=== PATIENT | female | born 1965 | race Caucasian/White ===

== ENCOUNTER 2018-01-10 14:41 | Inpatient (IN) ==
[2018-01-10] MEDS ORDERED: Ipratropium/Albuterol Neb 3 ML IH ONE (16:48)
--- NOTE | 2018-01-10 17:01 | Internal Med History&Physical ---
Date of Encounter: 01/11/18 Time of Encounter: 17:00 Internal Medicine - H&P: HPI History of present illness: Ms. Mclaughlin is a 52 year old female presents by EMS with initial complaint of diarrhea associated with productive cough of green sputum and increased O2 requirement. He CXR revealed pneumonia and she was admitted for COPD exacerbation. When She arrived she was saturating 94 on 8 L of Q, she improved significantly on BIBAP Past Med Surg Social Fam HX - Past Medical History Medical history: COPD Psychiatric history: no psych history - Past Surgical History Surgical History: hysterectomy - Social History Smoking Status: Current every day smoker Packs per day: 1 Smokeless Tobacco Status: No Alcohol use: none Drug use: none Internal Medicine - H&P: Meds Albuterol Sulfate [Proair Hfa] 1 puff IH Q4-6H PRN 09/06/15 [History] Symbicort 160/4.5 1 puff IH BID 09/06/15 [History] Albuterol Sulfate [Ventolin Hfa] 18 gm IH Q6H PRN 01/10/18 [History] 3 Allergy/AdvReac Type Severity Reaction Status Date / Time aspirin AdvReac Vomiting Verified 09/06/15 19:28 All Systems PM: A 10-system review of systems was performed and is negative for pertinent findings except as documented above in the HPI. - Constitutional Vitals: Temp Pulse Resp BP Pulse Ox 98.5 F 107 20 109/73 95 01/10/18 16:30 01/10/18 16:30 01/10/18 16:30 01/10/18 16:30 01/10/18 16:30 - Assessment and plan (1) COPD (chronic obstructive pulmonary disease) Current Visit: No Status: Chronic Assessment and plan: ASSESSMENT: - SOB due to *COPD exacerbation caused by URTI, allergen exposure, medication nonocompliance *Bronchitis *Pneumonia - infiltrate on CXR PLAN: - Aerosols q 4 hr and PRN SOB - Solu-medrol 40 mg IV q 6 hr - O2 to keep SpO2 higher than 92% (SpO higher than 95% if CAD) - CBCD, BMP in AM - Sputum Gram stain, C+S - Robitussin 10 cc PO q 4 hr - Tylenol 650 mg PO q 4-6 hr PRN pain/fever - Heparin 5000 U SQ BID - Home meds - check the list and restart - Azithromycine 500 po daily Qualifiers: COPD type: COPD with acute exacerbation Qualified Code(s): J44.1 - Chronic obstructive pulmonary disease with (acute) exacerbation (2) DVT prophylaxis Current Visit: Yes Status: Acute - Time Spent With Patient Total time spent is greater than 50% in coordination of care (as documented) at patient's floor/unit and/or counseling patient:
[2018-01-10] MEDS ORDERED: Naloxone 0.4 MG/ML INJ IVP PRN (18:53)
[2018-01-10] MEDS ORDERED: Acetaminophen 325 MG TABLET PO PRN (18:53)
[2018-01-10] MEDS ORDERED: *HR* HYDROcodone/Acet 5/325 mg TABLET PO PRN (18:53)
[2018-01-10 19:49] LABS: Prothrombin Time 11.3 Seconds (9.4-12.1)
[2018-01-10 19:52] LABS: Activated Partial Thrombo Time 26.7 Seconds (26.0-36.0)
[2018-01-11] MEDS: Ipratropium/Albuterol Neb 3 ML IH SCH ×7 (00:07→23:58)
[2018-01-11] MEDS: Azithromycin 500 MG in D5% in Water 250 ML IVPB SCH (03:09)
[2018-01-11] MEDS: MethylPREDNISolone 40 MG/ML VIAL IVP SCH ×3 (05:16→17:33)
[2018-01-11] MEDS: *HR* Heparin 5,000 UNIT/ML VIAL SQ SCH ×2 (05:16→17:33)
[2018-01-11 05:38] LABS: Basophils % 0.1 %; Hematocrit 41.1 % (35.3-44.9); Hemoglobin 12.8 g/dL (11.5-15.4); Immature Granulocytes % 0.5 % (0-4); Lymphocytes # 0.5 K/mcL (0.6-4.6); Lymphocytes % 5.2 %; Mean Corpuscular HGB Conc 31.1 g/dL (31.6-35.5); Mean Corpuscular Hemoglobin 31.4 pg (28.0-33.3); Mean Platelet Volume 10.5 fL (9.4-12.4); Monocytes # 0.7 K/mcL (0.0-1.3); Monocytes % 7.3 %; Neutrophils # 8.7 K/mcL (1.6-8.9); Platelet Count 171 K/mcL (140-400); Red Blood Count 4.07 M/mcL (3.82-4.97); Red Cell Distribution Width 14.6 % (11.5-14.5); Segmented Neutrophils % 86.9 %
[2018-01-11 05:50] LABS: Alanine Aminotransferase 13 Units/L (7-52); Albumin 3.1 g/dL (3.5-5.7); Albumin/Globulin Ratio 1.6 (1.1-2.2); Alkaline Phosphatase 93 Units/L (34-104); Aspartate Amino Transferase 14 Units/L (13-39); BUN/Creatinine Ratio 25 (6-26); Bilirubin,Total 0.3 mg/dL (0.3-1.0); Blood Urea Nitrogen 9 mg/dL (6-20); Calcium 8.8 mg/dL (8.6-10.3); Chloride 82 mEq/L (98-107); Chol/HDL Ratio 3.4 (0-4.9); Cholesterol 159 mg/dL (< 200); Glucose 185 mg/dL (70-105); HDL Cholesterol 47 mg/dL (40-59); LDL Cholesterol,Calculated 96 mg/dL (0-99); Magnesium 1.6 mg/dL (1.6-2.6); Osmolality,Calculated 287 (280-300); Phosphorous 3.1 mg/dL (2.7-4.5); Potassium 4.3 mEq/L (3.5-5.1); Sodium 137 mEq/L (136-145); Total Protein 5.1 g/dL (6.4-8.9); Triglycerides 81 mg/dL (< 150); eGFR For African Americans > 60 (> 60); eGFR For Non-African Americans > 60 (> 60)
[2018-01-11 05:54] LABS: Carbon Dioxide > 45 mEq/L (23-29)
--- NOTE | 2018-01-11 08:13 | Internal Med Progress Note ---
Date of Encounter: 01/12/18 Time of Encounter: 11:00 - Assessment and plan (1) Acute on chronic respiratory failure with hypoxia and hypercapnia Current Visit: Yes Status: Acute Assessment and plan: Patient was elevated CO2 levels in the 120s and 130s on ABG/ABG on BiPAP Continue treatment for COPD exacerbation/pneumonia with IV steroids and IV antibiotics Will consult pulmonology and appreciate recommendations for consideration of mechanical ventilation (2) CAP (community acquired pneumonia) Current Visit: Yes Status: Acute Assessment and plan: Continue IV azithromycin Qualifiers: Laterality: left Lung location: lower lobe of lung Qualified Code(s): J18.1 - Lobar pneumonia, unspecified organism (3) COPD (chronic obstructive pulmonary disease) Current Visit: No Status: Chronic Assessment and plan: Continue IV steroids as above and BiPAP Pulmonology consulted for additional recommendations Qualifiers: COPD type: COPD with acute exacerbation Qualified Code(s): J44.1 - Chronic obstructive pulmonary disease with (acute) exacerbation (4) DVT prophylaxis Current Visit: Yes Status: Acute Assessment and plan: Subcutaneous heparin - Time Spent With Patient Total time spent is greater than 50% in coordination of care (as documented) at patient's floor/unit and/or counseling patient: - Subjective Interval history: Patient with acute respiratory distress this morning with elevated hypercapnia on ABG/CABG Patient currently on BiPAP - Constitutional Vitals: Temp Pulse Resp BP Pulse Ox 98.5 F 106 20 106/65 96 01/11/18 07:01 01/11/18 07:01 01/11/18 07:01 01/11/18 07:01 01/11/18 07:01 General appearance: Present: mild distress - Respiratory Respiratory exam: Present: respiratory distress, wheezes, tachypnea - Expanded Respiratory Exam Location: decreased breath sounds: Left, Right, Upper, Lower - Cardiovascular Cardiovascular exam: Present: RRR, +S1, +S2. Absent: diastolic murmur, gallop, rubs, systolic murmur Internal Medicine: Result - Labs CBC & Chem 7: 01/11/18 04:47 01/11/18 04:47 Labs: Short CBC 01/11/18 Range/Units 04:47 WBC 10.1 (4.3-11.1) K/mcL Hgb 12.8 D (11.5-15.4) g/dL Hct 41.1 (35.3-44.9) % Plt Count 171 (140-400) K/mcL Neutrophils # 8.7 (1.6-8.9) K/mcL BMP 01/11/18 04:47 Sodium 137 Potassium 4.3 Chloride 82 L Carbon Dioxide > 45 H* BUN 9 Creatinine 0.36 L Glucose 185 H Calcium 8.8 Liver Function 01/11/18 Range/Units 04:47 Total Bilirubin 0.3 (0.3-1.0) mg/dL AST 14 (13-39) Units/L ALT 13 (7-52) Units/L Alkaline Phosphatase 93 (34-104) Units/L Albumin 3.1 L (3.5-5.7) g/dL - ABG Interpretation ABG results: PT/INR, D-dimer PT 11.3 Seconds (9.4-12.1) 01/10/18 19:17 Consult Discharge Plan - Plan Referrals: Zhen Almanzar MD [Primary Care Provider] - 01/17/18 11:30 am
[2018-01-11 09:48] LABS: ABG Base Excess 25 mEq/L (-2 to 3); ABG HCO3 59 mEq/L (21-27); ABG Oxygen Saturation 77 % (95-98); ABG PCO2 119 mmHg (35-45); ABG PO2 51 mmHg (85-104); ABG TCO2 63 mEq/L (20-26)
--- NOTE | 2018-01-11 13:13 | Cardiology Consult Note ---
<Anastacia Maynard - Last Filed: 01/11/18 13:34> Date of Encounter: 01/11/18 Time of Encounter: 13:00 Assessment and Plan (1) Tachyarrhythmia Current Visit: Yes Status: Acute Telemetry strips reviewed with Dr. Thomas. Do not suspect VT. Appears more consistent with SVT. No new symptoms reported during event--denies pre-syncope/syncope, chest pain. Tachyarrhythmia likely secondary to acute on chronic respiratory failure--p02 25 , pC02 148. End stage COPD, recommend continued supportive care. Recommend palliative care consult. No further inpatient testing from Cardiology recommended. (2) Acute on chronic respiratory failure with hypoxia and hypercapnia Current Visit: Yes Status: Acute Primary service following. End stage COPD, oxygen dependent; unfortunately continues to smoke. Recommend Palliative Care consult. Remains Bipap dependent (FI02 100%--ABG: pCO2 148, p02 25). Discussion w patient/family: The assessment and plan as outlined above was discussed with the patient and/or family members who expressed understanding and agreement. All questions were answered. Thank you for involving us in the care of your patient. Please call with any questions. The patient will be discussed and reviewed with Dr. Thomas; changes to be made accordingly. History of Present Illness Consult date: 01/11/18 Requesting physician: Saul De Guzman Consult reason: Arrhythmia Chief complaint: Shortness of breath History of present illness: Ms. Mclaughlin is a 52 year old female with PMHx significant for endstage COPD on oxygen therapy, tobacco dependency, pulmonary HTN, right ventricular dysfunction who presented to [facility] ED with difficulty breathing over the past several days. Patient reports productive cough (green sputum) in addition. She notes she has increased her oxygen delivery (typically 3-4 lpm) to improve breathing--was on 8 lpm upon arrival to [facility] ED. Associated symptoms include LE edema. Patient reports she tried to contact PCP, however unsuccessful which prompted ED evaluation. Cardiology consulted today for concern of ventricular tachycardia seen on telemetry. Upon exam, patient denies chest pain/discomfort, lightheadedness, near syncope/syncope, dizziness or syncope. She remains Bipap dependent--still with significant hypoxia and hypercapnia. Prior CV testing: TTE 02/05/17: LV function appears normal or hyperdynamic, RV is enlarged and hypokinetic, there is a D-shaped septum throughout the cardiac cycle suggesting RV pressure overload, mild TR (may be underestimated), moderate PH. Past Med Surg Social Fam HX - Past Medical History Attestation: Yes The following information was validated with the patient. Source: patient Medical history: CHF, COPD Psychiatric history: no psych history - Past Surgical History Surgical History: hysterectomy - Social History Smoking Status: Current every day smoker Packs per day: 1 Smokeless Tobacco Status: No Alcohol use: none Drug use: none Medications and Allergies Albuterol Sulfate [Ventolin Hfa] 2 puff IH Q6H PRN 01/10/18 [History] Budesonide/Formoterol 160/4.5 [Symbicort 160/4.5] 2 puff IH BIDR 01/11/18 [ History] Clopidogrel [Plavix] 75 mg PO DAILY 01/11/18 [History] Furosemide [Lasix] 20 mg PO DAILY 01/11/18 [History] Potassium Chloride [K-Tab ER] 20 meq PO BID 01/11/18 [History] Umeclidinium [place] [Incruse Ellipta] 1 puff IH DAILY 01/11/18 [History] 3 Allergy/AdvReac Type Severity Reaction Status Date / Time aspirin AdvReac Vomiting Verified 09/06/15 19:28 All Systems Review: The remainder of the systems were reviewed and are negative - Cardiovascular Cardiovascular: as per HPI Physical Examination Vital Signs, Last 4 Hours Temp Pulse Resp BP Pulse Ox 01/11/18 12:08 21 108/80 95 01/11/18 11:34 98.2 F 104 21 108/80 98 01/11/18 10:09 104 18 111/69 99 01/11/18 09:55 18 97 General: Other (Appears chronically ill; bipap dependent; thin, frail) Cardiac: Other (tachycardia) Lungs: Other (Decreased/coarse breath sounds throughout) Neuro: Alert and responsive Abdomen: Soft Extremities: Other (+2 BLE edema) Results 01/11/18 04:47 01/11/18 04:47 Lab Results 01/10/18 01/11/18 01/11/18 19:17 04:47 04:47 WBC 10.1 Hgb 12.8 D Hct 41.1 Plt Count 171 INR 1.0 APTT 26.7 Sodium 137 Potassium 4.3 Chloride 82 L Carbon Dioxide > 45 H* BUN 9 Creatinine 0.36 L Glucose 185 H Calcium 8.8 Magnesium 1.6 Total Bilirubin 0.3 AST 14 ALT 13 Alkaline Phosphatase 93 Active Medications Acetaminophen (Tylenol) 650 mg PO Q6HR PRN PRN Reason: Mild Pain/Fever Stop: 07/12/18 18:54 Hydrocodone Bitart/Acetaminophen ([place] 5-325 Mg) 1 tab PO Q6HR PRN PRN Reason: Moderate Pain Stop: 07/12/18 18:54 Albuterol/Ipratropium (Duoneb) 3 ml IH [id number] [facility] Stop: 07/13/18 00:01 Last Admin: 01/11/18 12:08 Dose: 3 ml Heparin Sodium (Porcine) (Heparin) 5,000 unit SQ Q12HCO [facility] Stop: 07/13/18 06:01 Last Admin: 01/11/18 05:16 Dose: 5,000 unit Azithromycin 500 mg/ Dextrose 250 mls @ 252 mls/hr IVPB Q24H [facility] Stop: 07/13/18 02:01 Last Admin: 01/11/18 03:09 Dose: 252 mls/hr Methylprednisolone (Solu-Medrol) 40 mg IVP Q6HR [facility] Stop: 07/13/18 06:01 Last Admin: 01/11/18 11:52 Dose: 40 mg Naloxone HCl (Narcan) 0.4 mg IVP Q2MIN PRN PRN Reason: SEE COMMENTS Stop: 07/12/18 18:54 - Imaging and Cardiology Echo: report reviewed - EKG Interpretation EKG results cardiology: personally reviewed Consult Discharge Plan - Plan Referrals: Zhen Almanzar MD [Primary Care Provider] - 01/17/18 11:30 am <Tato Thomas - Last Filed: 01/11/18 14:54> Date of Encounter: 01/11/18 - Attending Attestation I have personally performed a face to face evaluation on this patient. I have reviewed and agree with the care plan. History and Exam by me shows: CC: Shortness of breath, palpitations Pt is very hard to arouse, when she is conversant reports she is more short of breath prompting admission. She denies chest pain, pressure, admits to chronic shortness of breath, using O2 intermittantly, reports she usually takes it off to smoke. PMH: reviewed ROS: reviewed Labs and EKG Reviewed PE: pt seen and examined, agree with findings as documented, with the addition of pt is now very hard to arouse, able to hold focus for a few seconds then falls back asleep. Respiratory effort is very poor. IMP:PLAN 1. Tachyarrhythmia: unclear foci from tele, suspect SVT but can not rule out ventricular origin, overall very little from cardiovascular perspective to offer , arrhythmia driven by severe hypoxia and hypercapnea, most likely acidosis, any antiarrhythmic tx will most likely be ineffective unless tx underlying hypoxia/hypercapnea. 2. Hypercapnea: severe, pt has declined intubation, prognosis is dismal 3. hypomagnesemia: replacement ordered. Assessment and Plan Discussion w patient/family: The assessment and plan as outlined above was discussed with the patient and/or family members who expressed understanding and agreement. All questions were answered. Thank you for involving us in the care of your patient. Please call with any questions. History of Present Illness History of present illness: Ms. Mclaughlin is a 52 year old female All Systems Review: The remainder of the systems were reviewed and are negative Physical Examination Vital Signs, Last 4 Hours Temp Pulse Resp BP Pulse Ox 01/11/18 12:08 21 108/80 95 01/11/18 11:34 98.2 F 104 21 108/80 98 Results 01/11/18 04:47 01/11/18 04:47 Lab Results 01/10/18 01/11/18 01/11/18 19:17 04:47 04:47 WBC 10.1 Hgb 12.8 D Hct 41.1 Plt Count 171 INR 1.0 APTT 26.7 Sodium 137 Potassium 4.3 Chloride 82 L Carbon Dioxide > 45 H* BUN 9 Creatinine 0.36 L Glucose 185 H Calcium 8.8 Magnesium 1.6 Total Bilirubin 0.3 AST 14 ALT 13 Alkaline Phosphatase 93
[2018-01-11 13:20] LABS: VBG HCO3 60 mEq/L (21-27); VBG PCO2 119 mmHg (41-51); VBG PH 7.31 pH Units (7.32-7.42); VBG PO2 213 mmHg (25-50)
[2018-01-11] MEDS ORDERED: Nicotine 21 MG PATCH.TD24 TD PRN (14:10)
[2018-01-11 15:19] LABS: VBG HCO3 61 mEq/L (21-27); VBG PCO2 130 mmHg (41-51); VBG PH 7.28 pH Units (7.32-7.42); VBG PO2 241 mmHg (25-50)
--- NOTE | 2018-01-11 15:58 | Pulmonology Consult Note ---
Date of Encounter: 01/11/18 Time of Encounter: 15:55 Assessment and Plan (1) Acute on chronic respiratory failure with hypoxia and hypercapnia Current Visit: Yes Status: Acute Impression: In conclusion this is a pleasant 52-year-old woman with a past medical history of COPD and chronic respiratory failure on long-term oxygen therapy who presented with increasing shortness of breath and acute on chronic hypoxic hypercapnic respiratory failure. Overall picture is concerning for acute COPD exacerbation likely secondary to pneumonia in the context of terminal COPD complicated by cor pulmonale. I had a maggi conversation with the patient her overall prognosis is extremely poor. Although aggressive strategies to improve ventilation through noninvasive means, medication airway inflammation/bronchial constriction constriction and treat suspected infection are reasonable I do not suspect that the patient would benefit from heroic measures such as carpal pulmonary resuscitation or mechanical ventilation. Underlying mechanics are such that she has a severe emphysematous phenotype and evidence of radiographic and clinical hyperinflation such that even mechanical ventilation would be difficult to augment respiration to effectively ventilate the patient outside of likely deep sedation with neuromuscular blockade. In essence if she were intubated I suspect it will be very difficult to manage her effectively based upon her physiology and liberating her from the ventilator would likely be impossible. I communicated my impression directly with the patient and her boyfriend at bedside. Recs: -Schedule bronchodilators every 4 hours (duo nebs) with every hour albuterol treatments on an as-needed basis -Agree with continuation of IV Solu-Medrol 40 mg every 8 hours is reasonable. -I have switched her noninvasive ventilation mode from a [facility] PS 2 BiPAP with decreased pressures. Essentially I think that with increased tidal volume and increased pressures with an effectively increased her space ventilation. She should wear BiPAP nearly continuously for the next 24 hours with breaks for sips of liquid. I would keep the patient otherwise nothing by mouth -repeat ABG in the a.m. -Treat for community acquired pneumonia send sputum culture of blood culture not obtained strep and legionella and pneumococcal antigen from the urine as well as respiratory viral panel. Ceftriaxone and azithromycin a reasonable combination for the patient to present. -Hold further aggressive diuresis. The addition of a daily oral diuretic is reasonable such as Lasix 20mg but I would not plan to actively diuresis the patient in this situation -Recommend formal consultation with Palliative Care to continue to discuss goals of care Patient remains at high risk of developing encephalopathy precipitating respiratory failure Pulmonary will continue to follow (2) COPD with exacerbation Current Visit: Yes Status: Acute (3) Cor pulmonale Current Visit: Yes Status: Acute (4) Goals of care, counseling/discussion Current Visit: Yes Status: Acute (5) CAP (community acquired pneumonia) Current Visit: Yes Status: Acute Qualifiers: Laterality: left Lung location: lower lobe of lung Qualified Code(s): J18.1 - Lobar pneumonia, unspecified organism History of Present Illness Consult date: 01/11/18 Requesting physician: Saul De Guzman Reason for consult: COPD Chief complaint: Difficulty in Breathing History of present illness: The patient is a 52-year-old woman with a past medical history is significant for advanced COPD on long-term oxygen therapy tobacco dependency WHO group 3 pulmonary hypertension with right ventricular dysfunction secondary to chronic hypoxemia. She has noted worsening difficulty in breathing over the past several days prompting admission to [place] ED he typically uses 3-4 L of oxygen at all times but had had needed increased in oxygen delivery up to 8 L. To maintain oxygen saturation in the low 90s. She has since been placed on BiPAP. Arterial blood gases have been difficult to obtain but suggest the significantly deranged physiology including PCO2 greater than 100. ABG yesterday was notable for 7.34/101/53. She has been maintained on BiPAP over the last 24 hours however arterial blood gases have remained markedly aberrant and the primary hospitalist service and requested pulmonary evaluate the patient for further recommendations. WBC was elevated to 13.3 Lactic acid was normal on admission. BNP was 453 troponin was less than 0.03 Chest x-ray was notable for small left pleural effusion with left basilar opacification. There is also markedly hyperinflation of the lungs consistent with known diagnosis of COPD. She is been maintained on methylprednisolone 40 mg IV every 6 and started on azithromycin for COPD exacerbation. When I interviewed the patient the patient. She stated that prior to admission to hospital she was coughing up dark sputum. She denied any fevers or sick contacts. She has very poor exercise tolerance and most of her activity is sitting on the chair or couch and then ambulating to the bathroom after that she has no more energy to do anything else. Past Med Surg Social Fam HX - Past Medical History Medical history: CHF, COPD Psychiatric history: no psych history - Past Surgical History Surgical History: hysterectomy - Social History Smoking Status: Current every day smoker Packs per day: 1 Smokeless Tobacco Status: No Alcohol use: none Drug use: none Medications and Allergies Albuterol Sulfate [Ventolin Hfa] 2 puff IH Q6H PRN 01/10/18 [History] Budesonide/Formoterol 160/4.5 [Symbicort 160/4.5] 2 puff IH BIDR 01/11/18 [ History] Clopidogrel [Plavix] 75 mg PO DAILY 01/11/18 [History] Furosemide [Lasix] 20 mg PO DAILY 01/11/18 [History] Potassium Chloride [K-Tab ER] 20 meq PO BID 01/11/18 [History] Umeclidinium [place] [Incruse Ellipta] 1 puff IH DAILY 01/11/18 [History] 3 Allergy/AdvReac Type Severity Reaction Status Date / Time aspirin AdvReac Vomiting Verified 09/06/15 19:28 All Systems: The remainder of the systems were reviewed and are negative Physical Examination Vital Signs: Vital Signs, Last 4 Hours Resp BP Pulse Ox 01/11/18 12:08 21 108/80 95 General appearance: no acute distress, other (She is thin chronically ill and frail appearing) Eyes: nonicteric ENT: other (Noninvasive mask in satisfactory position) Neck: supple, JVD Effort: normal Auscultation: bilateral: diminished breath sounds, wheezes Cardiovascular: regular rate and rhythm Gastrointestinal: normoactive bowel sounds, soft, non-tender Integumentary: normal Extremities: cyanosis, edema, other (clubbing ) Musculoskeletal: no deformities normal mental status, non-focal exam mood appropriate Results - Laboratory Findings CBC and BMP: 01/11/18 04:47 01/11/18 04:47 ABG ABG pH 7.21 pH Units (7.32-7.45) L 01/11/18 12:21 ABG pCO2 148 mmHg (35-45) H* D 01/11/18 12:21 ABG pO2 25 mmHg (85-104) L* 01/11/18 12:21 ABG O2 Saturation 27 % (95-98) L 01/11/18 12:21 PT/INR, D-dimer PT 11.3 Seconds (9.4-12.1) 01/10/18 19:17 Abnormal lab findings: Abnormal lab results MCV 101.0 fL (83.0-100.0) H 01/11/18 04:47 MCHC 31.1 g/dL (31.6-35.5) L 01/11/18 04:47 RDW 14.6 % (11.5-14.5) H 01/11/18 04:47 Lymphocytes # 0.5 K/mcL (0.6-4.6) L 01/11/18 04:47 ABG pH 7.21 pH Units (7.32-7.45) L 01/11/18 12:21 ABG pCO2 148 mmHg (35-45) H* D 01/11/18 12:21 ABG pO2 25 mmHg (85-104) L* 01/11/18 12:21 ABG HCO3 59 mEq/L (21-27) H 01/11/18 12:21 ABG Total CO2 63 mEq/L (20-26) H 01/11/18 12:21 ABG O2 Saturation 27 % (95-98) L 01/11/18 12:21 ABG Base Excess 22 mEq/L (-2 to 3) H 01/11/18 12:21 VBG pH 7.28 pH Units (7.32-7.42) L 01/11/18 15:12 VBG pCO2 130 mmHg (41-51) H* 01/11/18 15:12 VBG pO2 241 mmHg (25-50) H 01/11/18 15:12 VBG HCO3 61 mEq/L (21-27) H 01/11/18 15:12 Chloride 82 mEq/L (98-107) L 01/11/18 04:47 Carbon Dioxide > 45 mEq/L (23-29) H* 01/11/18 04:47 Creatinine 0.36 mg/dL (0.60-1.20) L 01/11/18 04:47 Glucose 185 mg/dL (70-105) H 01/11/18 04:47 Serum Total Protein 5.1 g/dL (6.4-8.9) L 01/11/18 04:47 Albumin 3.1 g/dL (3.5-5.7) L 01/11/18 04:47 Globulin 2.0 g/dL (2.4-3.5) L 01/11/18 04:47 - Diagnostic Findings Chest x-ray: report reviewed, image reviewed - Clinical Findings Intake & Output: Intake & Output 01/10/18 01/11/18 01/11/18 23:59 07:59 15:59 Intake Total 240 / 240 240 / 240 360 / 360 Output Total 550 / 550 120 / 120 Balance -310 / -310 120 / 120 360 / 360 Weight 52 kg Consult Discharge Plan - Plan Referrals: Zhen Almanzar MD [Primary Care Provider] - 01/17/18 11:30 am
[2018-01-12] MEDS: MethylPREDNISolone 40 MG/ML VIAL IVP SCH ×4 (01:15→17:22)
[2018-01-12] MEDS: Azithromycin 500 MG in D5% in Water 250 ML IVPB SCH (01:15)
[2018-01-12 01:53] LABS: Bilirubin,Urine Negative (Negative); Blood,Urine Negative (Negative); Clarity,Urine Cloudy (Clear); Color,Urine Yellow (Yellow); Glucose,Urine (UA) Normal (Normal); Ketones,Urine Negative (Negative); Leukocyte Esterase,Urine Negative (Negative); Nitrite,Urine Negative (Negative); PH,Urine 7.5 pH Units (5.0-8.0); Protein,Urine Negative (Neg-Trace); Specific Gravity,Urine 1.019 (1.010-1.025); Urobilinogen,Urine Normal (Normal)
[2018-01-12 01:55] LABS: Bacteria,Urine None Seen per hpf (None-Few); Hyaline Casts,Urine None Seen per lpf (None-Few); Squamous Epithelial Cell,Urine Many per lpf (None-Few); WBC,Urine 0-3 per hpf (0-3)
[2018-01-12] MEDS: Ipratropium/Albuterol Neb 3 ML IH SCH ×5 (03:40→20:39)
[2018-01-12] MEDS: *HR* Heparin 5,000 UNIT/ML VIAL SQ SCH ×2 (06:39→17:22)
--- NOTE | 2018-01-12 08:01 | Internal Med Progress Note ---
Date of Encounter: 01/12/18 Time of Encounter: 11:00 - Assessment and plan (1) Acute on chronic respiratory failure with hypoxia and hypercapnia Current Visit: Yes Status: Acute Assessment and plan: Patient's hypercapnic respiratory failure has improved as PCO2 on ABG now 102 down from 148 yesterday Patient not requiring BiPAP this morning Nephrology following and appreciate recommendations (2) CAP (community acquired pneumonia) Current Visit: Yes Status: Acute Assessment and plan: Continue IV azithromycin Qualifiers: Laterality: left Lung location: lower lobe of lung Qualified Code(s): J18.1 - Lobar pneumonia, unspecified organism (3) COPD (chronic obstructive pulmonary disease) Current Visit: No Status: Chronic Assessment and plan: Continue IV steroids Pulmonology consulted for additional recommendations Qualifiers: COPD type: COPD with acute exacerbation Qualified Code(s): J44.1 - Chronic obstructive pulmonary disease with (acute) exacerbation (4) DVT prophylaxis Current Visit: Yes Status: Acute Assessment and plan: Subcutaneous heparin - Time Spent With Patient Total time spent is greater than 50% in coordination of care (as documented) at patient's floor/unit and/or counseling patient: - Subjective Interval history: Patient stated and acute respiratory hypoxic/hypercapnic failure but no longer requiring NIPPV this morning Patient's hypercapnic respiratory failure has improved - Constitutional Vitals: Temp Pulse Resp BP Pulse Ox 98.0 F 97 12 112/71 96 01/12/18 07:13 01/12/18 07:13 01/12/18 07:32 01/12/18 07:13 01/12/18 07:32 General appearance: Present: mild distress, no acute distress - Expanded Respiratory Exam Location: decreased breath sounds: Left, Right, Upper, Lower - Cardiovascular Cardiovascular exam: Present: RRR, +S1, +S2. Absent: diastolic murmur, gallop, rubs, systolic murmur Internal Medicine: Result - Labs CBC & Chem 7: 01/12/18 11:14 01/12/18 11:14 Labs: Urine 01/12/18 Range/Units 01:40 Urine Color Yellow (Yellow) Urine Clarity Cloudy A (Clear) Urine pH 7.5 (5.0-8.0) pH Units Ur Specific [place] 1.019 (1.010-1.025) Urine Protein Negative (Neg-Trace) mg/dL Urine Glucose (UA) Normal (Normal) mg/dL - ABG Interpretation ABG results: ABG ABG pH 7.21 pH Units (7.32-7.45) L 01/11/18 12:21 ABG pCO2 148 mmHg (35-45) H* D 01/11/18 12:21 ABG pO2 25 mmHg (85-104) L* 01/11/18 12:21 ABG O2 Saturation 27 % (95-98) L 01/11/18 12:21 PT/INR, D-dimer PT 11.3 Seconds (9.4-12.1) 01/10/18 19:17 Consult Discharge Plan - Plan Referrals: Zhen Almanzar MD [Primary Care Provider] - 01/17/18 11:30 am
[2018-01-12 08:12] LABS: ABG Base Excess 27 mEq/L (-2 to 3); ABG HCO3 59 mEq/L (21-27); ABG Oxygen Saturation 91 % (95-98); ABG PCO2 102 mmHg (35-45); ABG PH 7.37 pH Units (7.32-7.45); ABG PO2 69 mmHg (85-104); ABG TCO2 62 mEq/L (20-26)
--- NOTE | 2018-01-12 08:17 | Pulmonology Progress Note ---
Date of Encounter: 01/12/18 Time of Encounter: 08:15 Assessment and Plan (1) Acute on chronic respiratory failure with hypoxia and hypercapnia Current Visit: Yes Status: Acute ABG today shows compensated chronic respiratory acidosis. Continue supplemental oxygen to keep oxygen saturation greater than 88% at all times Discontinue continuous BiPAP during the day she should wear for 4-6 hours during the day for the next 24 hours and it at night Qualify patient for noninvasive ventilation at discharge (BiPAP) empric settings 12/4 with Fio2 bleed to keep sat >88% (2) COPD with exacerbation Current Visit: Yes Status: Acute Continue IV steroids today transition to oral prednisone 40 mg to complete prolonged taper I suggest 40 mg to start with decrease by 10 mg weekly to stop taper 10 mg daily until seen by pulmonary or very least PCP Continue bronchodilators Symbicort 160/4.5 2 puffs twice a day Tobacco abuse counseling given (3) Cor pulmonale Current Visit: Yes Status: Acute Patient shows evidence of right ventricular volume overload with the clinical signs of right heart failure Recommend low-dose daily diuretic such as furosemide 20 mg (4) CAP (community acquired pneumonia) Current Visit: Yes Status: Acute Ceftriaxone/azithromycin pending culture results. Can be de-escalated to likely azithromycin She will need to be treated for 7 days total Qualifiers: Laterality: left Lung location: lower lobe of lung Qualified Code(s): J18.1 - Lobar pneumonia, unspecified organism (5) Goals of care, counseling/discussion Current Visit: Yes Status: Acute Overall prognosis is very poor for terminal COPD life expectancy would be less than 6 months based upon physiological data and clinical evaluation. Recommend formal palliative care consultation to address goals of care prior to discharge. She will need outpatient pulmonary evaluation within 1-2 weeks at discharge Please call with questions Objective PUL Vital signs: Last Vital Signs Temp 98.0 F 01/12/18 07:13 Pulse 97 01/12/18 07:13 Resp 12 01/12/18 07:32 BP 112/71 01/12/18 07:13 Pulse Ox 96 01/12/18 07:32 General appearance: no acute distress Eyes: nonicteric Effort: normal Auscultation: bilateral: diminished breath sounds Cardiovascular: regular rate and rhythm Gastrointestinal: normoactive bowel sounds, soft, non-tender Extremities: edema normal mental status, non-focal exam mood appropriate Results - Laboratory Findings CBC and BMP: 01/11/18 04:47 01/11/18 04:47 ABG ABG pH 7.37 pH Units (7.32-7.45) 01/12/18 08:06 ABG pCO2 102 mmHg (35-45) H* 01/12/18 08:06 ABG pO2 69 mmHg (85-104) L 01/12/18 08:06 ABG O2 Saturation 91 % (95-98) L 01/12/18 08:06 PT/INR, D-dimer PT 11.3 Seconds (9.4-12.1) 01/10/18 19:17 Abnormal lab findings: Abnormal lab results MCV 101.0 fL (83.0-100.0) H 01/11/18 04:47 MCHC 31.1 g/dL (31.6-35.5) L 01/11/18 04:47 RDW 14.6 % (11.5-14.5) H 01/11/18 04:47 Lymphocytes # 0.5 K/mcL (0.6-4.6) L 01/11/18 04:47 ABG pCO2 102 mmHg (35-45) H* 01/12/18 08:06 ABG pO2 69 mmHg (85-104) L 01/12/18 08:06 ABG HCO3 59 mEq/L (21-27) H 01/12/18 08:06 ABG Total CO2 62 mEq/L (20-26) H 01/12/18 08:06 ABG O2 Saturation 91 % (95-98) L 01/12/18 08:06 ABG Base Excess 27 mEq/L (-2 to 3) H 01/12/18 08:06 VBG pH 7.28 pH Units (7.32-7.42) L 01/11/18 15:12 VBG pCO2 130 mmHg (41-51) H* 01/11/18 15:12 VBG pO2 241 mmHg (25-50) H 01/11/18 15:12 VBG HCO3 61 mEq/L (21-27) H 01/11/18 15:12 Chloride 82 mEq/L (98-107) L 01/11/18 04:47 Carbon Dioxide > 45 mEq/L (23-29) H* 01/11/18 04:47 Creatinine 0.36 mg/dL (0.60-1.20) L 01/11/18 04:47 Glucose 185 mg/dL (70-105) H 01/11/18 04:47 Serum Total Protein 5.1 g/dL (6.4-8.9) L 01/11/18 04:47 Albumin 3.1 g/dL (3.5-5.7) L 01/11/18 04:47 Globulin 2.0 g/dL (2.4-3.5) L 01/11/18 04:47 Urine Clarity Cloudy (Clear) A 01/12/18 01:40 Urine Microscopic RBC 5-15 per hpf (0-3) H 01/12/18 01:40 Ur Squamous Epith Cells Many per lpf (None-Few) H 01/12/18 01:40 - Clinical Findings Intake & Output: Intake & Output 01/11/18 01/12/18 01/12/18 23:59 07:59 15:59 Intake Total 50 / 50 120 / 120 Output Total 150 / 150 350 / 350 Balance -100 / -100 -230 / -230 Consult Discharge Plan - Plan Referrals: Zhen Almanzar MD [Primary Care Provider] - 01/17/18 11:30 am
[2018-01-12 11:36] LABS: Basophils % 0.2 %; Immature Granulocytes % 0.6 % (0-4); Lymphocytes # 0.2 K/mcL (0.6-4.6); Lymphocytes % 3.5 %; Mean Corpuscular HGB Conc 30.2 g/dL (31.6-35.5); Mean Corpuscular Hemoglobin 30.8 pg (28.0-33.3); Mean Corpuscular Volume 101.9 fL (83.0-100.0); Mean Platelet Volume 9.7 fL (9.4-12.4); Monocytes # 0.2 K/mcL (0.0-1.3); Monocytes % 3.5 %; Platelet Count 183 K/mcL (140-400); Red Blood Count 4.22 M/mcL (3.82-4.97); Red Cell Distribution Width 14.6 % (11.5-14.5); Segmented Neutrophils % 92.2 %
[2018-01-12 11:52] LABS: BUN/Creatinine Ratio 41 (6-26); Blood Urea Nitrogen 13 mg/dL (6-20); Carbon Dioxide > 45 mEq/L (23-29); Chloride 82 mEq/L (98-107); Glucose 244 mg/dL (70-105); Osmolality,Calculated 296 (280-300); Potassium 4.6 mEq/L (3.5-5.1); Sodium 139 mEq/L (136-145); eGFR For African Americans > 60 (> 60); eGFR For Non-African Americans > 60 (> 60)
[2018-01-12 12:08] LABS: Platelet Estimate Normal (Normal)
[2018-01-13] MEDS: Ipratropium/Albuterol Neb 3 ML IH SCH ×7 (01:46→23:21)
[2018-01-13 04:44] LABS: Basophils % 0.1 %; Hematocrit 42.9 % (35.3-44.9); Hemoglobin 13.1 g/dL (11.5-15.4); Immature Granulocytes % 0.4 % (0-4); Lymphocytes # 0.5 K/mcL (0.6-4.6); Lymphocytes % 6.8 %; Mean Corpuscular HGB Conc 30.5 g/dL (31.6-35.5); Mean Corpuscular Hemoglobin 31.8 pg (28.0-33.3); Mean Corpuscular Volume 104.1 fL (83.0-100.0); Mean Platelet Volume 9.8 fL (9.4-12.4); Monocytes # 0.8 K/mcL (0.0-1.3); Monocytes % 10.6 %; Neutrophils # 5.9 K/mcL (1.6-8.9); Platelet Count 185 K/mcL (140-400); Red Blood Count 4.12 M/mcL (3.82-4.97); Red Cell Distribution Width 14.4 % (11.5-14.5); Segmented Neutrophils % 82.1 %
[2018-01-13 04:57] LABS: ABG Base Excess 29 mEq/L (-2 to 3); ABG HCO3 63 mEq/L (21-27); ABG Oxygen Saturation 93 % (95-98); ABG PCO2 121 mmHg (35-45); ABG PH 7.33 pH Units (7.32-7.45); ABG PO2 81 mmHg (85-104); ABG TCO2 67 mEq/L (20-26)
[2018-01-13 05:04] LABS: BUN/Creatinine Ratio 50 (6-26); Blood Urea Nitrogen 14 mg/dL (6-20); Calcium 9.1 mg/dL (8.6-10.3); Carbon Dioxide > 45 mEq/L (23-29); Chloride 85 mEq/L (98-107); Glucose 123 mg/dL (70-105); Osmolality,Calculated 294 (280-300); Potassium 5.1 mEq/L (3.5-5.1); Sodium 141 mEq/L (136-145); eGFR For African Americans > 60 (> 60); eGFR For Non-African Americans > 60 (> 60)
--- NOTE | 2018-01-13 05:34 | Event Note ---
Date of Encounter: 01/13/18 Time of Encounter: 04:32 Call from floor from the patient is anxious and respiratory distress. Evaluated patient she is on BiPAP with SPO2 90% stable vitals. Repeat ABG with worsening CO2 therefore BiPAP setting change to tidal volume. BMP magnesium level order to rule out underlying electrolyte abnormality. After a few minutes patient was feeling rested and comfortable.
[2018-01-13 05:36] LABS: Troponin I < 0.03 ng/mL (< 0.04)
[2018-01-13] MEDS: Azithromycin 500 MG in D5% in Water 250 ML IVPB SCH (05:45)
[2018-01-13] MEDS: *HR* Heparin 5,000 UNIT/ML VIAL SQ SCH ×2 (05:46→17:12)
[2018-01-13] MEDS: MethylPREDNISolone 40 MG/ML VIAL IVP SCH ×4 (05:46→17:12)
--- NOTE | 2018-01-13 09:52 | Internal Med Progress Note ---
Date of Encounter: 01/13/18 Time of Encounter: 11:00 - Assessment and plan (1) Acute on chronic respiratory failure with hypoxia and hypercapnia Current Visit: Yes Status: Acute Assessment and plan: Patient without much improvement and hypercapnic/hypoxic respiratory failure with arterial blood gas PCO2 of 121 today; PCO2 on ABG was 102 on 01/12/18 and 148 on 01/11/18 Patient not requiring BiPAP this morning Pulmonology following with recommendations or CT of chest showed tiny pleural effusions bilaterally suggesting fluid overload Will start patient on IV Lasix 20 mg daily due to cor pulmonale as below (2) Cor pulmonale Current Visit: Yes Status: Acute Assessment and plan: Will start patient on IV Lasix 20 mg twice daily (3) CAP (community acquired pneumonia) Current Visit: Yes Status: Acute Assessment and plan: Continue IV azithromycin Qualifiers: Laterality: left Lung location: lower lobe of lung Qualified Code(s): J18.1 - Lobar pneumonia, unspecified organism (4) COPD (chronic obstructive pulmonary disease) Current Visit: No Status: Chronic Assessment and plan: Continue IV steroids Pulmonology consulted for additional recommendations Qualifiers: COPD type: COPD with acute exacerbation Qualified Code(s): J44.1 - Chronic obstructive pulmonary disease with (acute) exacerbation (5) DVT prophylaxis Current Visit: Yes Status: Acute Assessment and plan: Subcutaneous heparin - Time Spent With Patient Total time spent is greater than 50% in coordination of care (as documented) at patient's floor/unit and/or counseling patient: - Subjective Interval history: Patient with no improvement in hypercapnic/hypoxic respiratory failure with arterial blood gas CO2 121 this morning - Constitutional Vitals: Temp Pulse Resp BP Pulse Ox 97.6 F 104 16 112/77 89 01/13/18 06:58 01/13/18 06:58 01/13/18 07:21 01/13/18 07:21 01/13/18 07:21 General appearance: Present: mild distress, no acute distress - Respiratory Respiratory exam: Present: decreased breath sounds, CTAB, respiratory distress. Absent: accessory muscle use, rales, rhonchi, wheezes - Cardiovascular Cardiovascular exam: Present: RRR, +S1, +S2. Absent: diastolic murmur, gallop, rubs, systolic murmur Internal Medicine: Result - Labs CBC & Chem 7: 01/13/18 04:21 01/13/18 04:21 Labs: Short CBC 01/12/18 01/13/18 Range/Units 11:14 04:21 WBC 5.4 7.2 (4.3-11.1) K/mcL Hgb 13.0 13.1 (11.5-15.4) g/dL Hct 43.0 42.9 (35.3-44.9) % Plt Count 183 185 (140-400) K/mcL Neutrophils # 5.0 5.9 (1.6-8.9) K/mcL BMP 01/12/18 01/13/18 11:14 04:21 Sodium 139 141 Potassium 4.6 5.1 Chloride 82 L 85 L Carbon Dioxide > 45 H* > 45 H* BUN 13 14 Creatinine 0.32 L 0.28 L Glucose 244 H 123 H Calcium 9.0 9.1 Cardiac Enzymes 01/13/18 Range/Units 04:21 Troponin I < 0.03 (< 0.04) ng/mL - ABG Interpretation ABG results: ABG ABG pH 7.33 pH Units (7.32-7.45) 01/13/18 04:50 ABG pCO2 121 mmHg (35-45) H* 01/13/18 04:50 ABG pO2 81 mmHg (85-104) L 01/13/18 04:50 ABG O2 Saturation 93 % (95-98) L 01/13/18 04:50 PT/INR, D-dimer PT 11.3 Seconds (9.4-12.1) 01/10/18 19:17 - Impressions Impressions Chest X-Ray 01/12/18 08:00 IMPRESSION: Minimal improvement of left pleural effusion. Otherwise stable chest. D/ / Sharon Chawla MD / Sharon Chawla MD Interpreting Provider: Sharon Chawla MD Consult Discharge Plan - Plan Referrals: Zhen Almanzar MD [Primary Care Provider] - 01/17/18 11:30 am
--- NOTE | 2018-01-13 10:10 | Pulmonology Progress Note ---
Date of Encounter: 01/13/18 Time of Encounter: 10:10 Assessment and Plan (1) Acute on chronic respiratory failure with hypoxia and hypercapnia Current Visit: Yes Status: Acute ABG today shows compensated chronic respiratory acidosis. Continue supplemental oxygen to keep oxygen saturation greater than 88% at all times Based upon events overnight I suspect patient will be BiPAP dependent and would anticipate wearing noninvasive ventilation for the majority of the day and throughout the night CT scan noncontrasted of the thorax for further delineation of underlying lung architecture and specific evaluation for lung malignancy given clubbing on examination and weight loss. This would have prognostic implications Qualify patient for noninvasive ventilation at discharge (BiPAP) empric settings 12/4 with Fio2 bleed to keep sat >88% (2) COPD with exacerbation Current Visit: Yes Status: Acute Continue IV steroids today transition to oral prednisone 40 mg to complete prolonged taper I suggest 40 mg to start with decrease by 10 mg weekly to stop taper 10 mg daily until seen by pulmonary or very least PCP Continue bronchodilators Symbicort 160/4.5 2 puffs twice a day Tobacco abuse counseling given (3) Cor pulmonale Current Visit: Yes Status: Acute Patient shows evidence of right ventricular volume overload with the clinical signs of right heart failure Recommend low-dose daily diuretic such as furosemide 20 mg (4) CAP (community acquired pneumonia) Current Visit: Yes Status: Acute Cont Antibiotics (Azithro) 5-7 days based upon clinical response l Qualifiers: Laterality: left Lung location: lower lobe of lung Qualified Code(s): J18.1 - Lobar pneumonia, unspecified organism (5) Goals of care, counseling/discussion Current Visit: Yes Status: Acute Overall prognosis is very poor for terminal COPD life expectancy would be less than 6 months based upon physiological data and clinical evaluation. Recommend formal palliative care consultation to address goals of care prior to discharge. I discussed again with the patient that she would likely need BiPAP for the rest of her life and could not likely be off it for any extended period of time. Her significant other was in the room during our conversation. She is not ready to stop aggressive measures at this time given that the diagnosis was made during this hospitalization and she was unaware of how severe her underlying lung function was. Pulmonary will be happy to follow this patient in the clinic at time of discharge. And we will continue to follow her while inpatient Please call with questions Subjective Principal diagnosis: AECOPD Interval history: Patient episode of dyspnea last night while wearing BiPAP. Noted to have worsening respiratory acidosis and was switched back to AVAPS mode. She is resting comfortably with noninvasive ventilation at this time. Says her breathing is about the same as yesterday Objective PUL Vital signs: Last Vital Signs Temp 97.6 F 01/13/18 06:58 Pulse 104 01/13/18 06:58 Resp 16 01/13/18 07:21 BP 112/77 01/13/18 07:21 Pulse Ox 89 01/13/18 07:21 General appearance: no acute distress Eyes: nonicteric ENT: oropharynx dry Neck: supple Auscultation: bilateral: diminished breath sounds (Left lower greater than right ) Cardiovascular: regular rate and rhythm Gastrointestinal: normoactive bowel sounds, absent bowel sounds Integumentary: normal Extremities: edema normal mental status, other (She is having involuntary jerking of her upper extremities ) mood appropriate Results - Laboratory Findings CBC and BMP: 01/13/18 04:21 01/13/18 04:21 ABG ABG pH 7.33 pH Units (7.32-7.45) 01/13/18 04:50 ABG pCO2 121 mmHg (35-45) H* 01/13/18 04:50 ABG pO2 81 mmHg (85-104) L 01/13/18 04:50 ABG O2 Saturation 93 % (95-98) L 01/13/18 04:50 PT/INR, D-dimer PT 11.3 Seconds (9.4-12.1) 01/10/18 19:17 Abnormal lab findings: Abnormal lab results MCV 104.1 fL (83.0-100.0) H 01/13/18 04:21 MCHC 30.5 g/dL (31.6-35.5) L 01/13/18 04:21 Lymphocytes # 0.5 K/mcL (0.6-4.6) L 01/13/18 04:21 ABG pCO2 121 mmHg (35-45) H* 01/13/18 04:50 ABG pO2 81 mmHg (85-104) L 01/13/18 04:50 ABG HCO3 63 mEq/L (21-27) H 01/13/18 04:50 ABG Total CO2 67 mEq/L (20-26) H 01/13/18 04:50 ABG O2 Saturation 93 % (95-98) L 01/13/18 04:50 ABG Base Excess 29 mEq/L (-2 to 3) H 01/13/18 04:50 VBG pH 7.28 pH Units (7.32-7.42) L 01/11/18 15:12 VBG pCO2 130 mmHg (41-51) H* 01/11/18 15:12 VBG pO2 241 mmHg (25-50) H 01/11/18 15:12 VBG HCO3 61 mEq/L (21-27) H 01/11/18 15:12 Chloride 85 mEq/L (98-107) L 01/13/18 04:21 Carbon Dioxide > 45 mEq/L (23-29) H* 01/13/18 04:21 Creatinine 0.28 mg/dL (0.60-1.20) L 01/13/18 04:21 BUN/Creatinine Ratio 50 (6-26) H 01/13/18 04:21 Glucose 123 mg/dL (70-105) H 01/13/18 04:21 Serum Total Protein 5.1 g/dL (6.4-8.9) L 01/11/18 04:47 Albumin 3.1 g/dL (3.5-5.7) L 01/11/18 04:47 Globulin 2.0 g/dL (2.4-3.5) L 01/11/18 04:47 Urine Clarity Cloudy (Clear) A 01/12/18 01:40 Urine Microscopic RBC 5-15 per hpf (0-3) H 01/12/18 01:40 Ur Squamous Epith Cells Many per lpf (None-Few) H 01/12/18 01:40 - Clinical Findings Intake & Output: Intake & Output 01/12/18 01/13/18 01/13/18 23:59 07:59 15:59 Intake Total 360 / 360 0 / 0 240 / 240 Output Total 550 / 550 100 / 100 Balance -190 / -190 0 / 0 140 / 140 Consult Discharge Plan - Plan Referrals: Zhen Almanzar MD [Primary Care Provider] - 01/17/18 11:30 am
[2018-01-13] MEDS ORDERED: Isovue-370 500 ML INFUS..BTL IV ONE (11:29)
[2018-01-13] MEDS ORDERED: Furosemide 20 MG/2 ML VIAL IVP SCH ×2 (11:30→17:00)
[2018-01-13] MEDS: Budesonide/Formoterol 160/4.5 MDI IH SCH (20:25)
[2018-01-13] MEDS ORDERED: NON-FORMULARY MEDICATION 1 EACH EACH (Potassium Chloride [K-Tab Er] 20 MEQ) PO SCH (21:00)
[2018-01-14] MEDS: MethylPREDNISolone 40 MG/ML VIAL IVP SCH ×5 (02:52→23:53)
[2018-01-14] MEDS: Azithromycin 500 MG in D5% in Water 250 ML IVPB SCH (02:52)
[2018-01-14] MEDS: Ipratropium/Albuterol Neb 3 ML IH SCH ×5 (03:41→20:32)
[2018-01-14 04:08] LABS: Basophils % 0.2 %; Hematocrit 39.8 % (35.3-44.9); Immature Granulocytes % 1.3 % (0-4); Lymphocytes # 0.4 K/mcL (0.6-4.6); Lymphocytes % 7.2 %; Mean Corpuscular HGB Conc 30.2 g/dL (31.6-35.5); Mean Corpuscular Hemoglobin 31.3 pg (28.0-33.3); Mean Corpuscular Volume 103.6 fL (83.0-100.0); Mean Platelet Volume 9.6 fL (9.4-12.4); Monocytes # 0.8 K/mcL (0.0-1.3); Monocytes % 13.2 %; Neutrophils # 4.8 K/mcL (1.6-8.9); Platelet Count 188 K/mcL (140-400); Red Blood Count 3.84 M/mcL (3.82-4.97); Red Cell Distribution Width 14.6 % (11.5-14.5); Segmented Neutrophils % 78.1 %
[2018-01-14 04:13] LABS: VBG HCO3 58 mEq/L (21-27); VBG PCO2 112 mmHg (41-51); VBG PH 7.32 pH Units (7.32-7.42); VBG PO2 137 mmHg (25-50)
[2018-01-14 04:34] LABS: BUN/Creatinine Ratio 48 (6-26); Blood Urea Nitrogen 14 mg/dL (6-20); Carbon Dioxide > 45 mEq/L (23-29); Chloride 83 mEq/L (98-107); Glucose 183 mg/dL (70-105); Osmolality,Calculated 297 (280-300); Potassium 4.7 mEq/L (3.5-5.1); Sodium 141 mEq/L (136-145); eGFR For African Americans > 60 (> 60); eGFR For Non-African Americans > 60 (> 60)
[2018-01-14] MEDS: *HR* Heparin 5,000 UNIT/ML VIAL SQ SCH ×2 (07:45→18:09)
[2018-01-14] MEDS: Furosemide 20 MG/2 ML VIAL IVP SCH (07:49)
--- NOTE | 2018-01-14 07:52 | Internal Med Progress Note ---
Date of Encounter: 01/14/18 Time of Encounter: 11:00 - Assessment and plan (1) Acute on chronic respiratory failure with hypoxia and hypercapnia Current Visit: Yes Status: Acute Assessment and plan: Patient without much improvement and hypercapnic/hypoxic respiratory failure with venous blood gas PCO2 of 109 today Pulmonology following and appreciate recommendations (2) Cor pulmonale Current Visit: Yes Status: Acute Assessment and plan: Patient with 1.4L urinary output over 24hrs with one dose of IV Lasix 20 mg (3) CAP (community acquired pneumonia) Current Visit: Yes Status: Acute Assessment and plan: Continue Day 3 of IV azithromycin Qualifiers: Laterality: left Lung location: lower lobe of lung Qualified Code(s): J18.1 - Lobar pneumonia, unspecified organism (4) COPD (chronic obstructive pulmonary disease) Current Visit: No Status: Chronic Assessment and plan: Continue IV steroids Pulmonology consulted for additional recommendations Qualifiers: COPD type: COPD with acute exacerbation Qualified Code(s): J44.1 - Chronic obstructive pulmonary disease with (acute) exacerbation (5) DVT prophylaxis Current Visit: Yes Status: Acute Assessment and plan: Subcutaneous heparin - Time Spent With Patient Total time spent is greater than 50% in coordination of care (as documented) at patient's floor/unit and/or counseling patient: - Subjective Interval history: Patient with no improvement in hypercapnic/hypoxic respiratory failure with venous blood gas CO2 109 this morning - Constitutional Vitals: Temp Pulse Resp BP Pulse Ox 97.4 F L 97 23 103/60 94 01/14/18 07:13 01/14/18 07:13 01/14/18 07:13 01/14/18 07:13 01/14/18 07:13 General appearance: Present: mild distress, no acute distress - Respiratory Respiratory exam: Present: decreased breath sounds, CTAB. Absent: accessory muscle use, rales, rhonchi, wheezes - Cardiovascular Cardiovascular exam: Present: RRR, +S1, +S2. Absent: diastolic murmur, gallop, rubs, systolic murmur Internal Medicine: Result - Labs CBC & Chem 7: 01/14/18 03:56 01/14/18 03:56 Labs: Short CBC 01/14/18 Range/Units 03:56 WBC 6.2 (4.3-11.1) K/mcL Hgb 12.0 (11.5-15.4) g/dL Hct 39.8 (35.3-44.9) % Plt Count 188 (140-400) K/mcL Neutrophils # 4.8 (1.6-8.9) K/mcL BMP 01/14/18 03:56 Sodium 141 Potassium 4.7 Chloride 83 L Carbon Dioxide > 45 H* BUN 14 Creatinine 0.29 L Glucose 183 H Calcium 9.0 - ABG Interpretation ABG results: ABG ABG pH 7.33 pH Units (7.32-7.45) 01/13/18 04:50 ABG pCO2 121 mmHg (35-45) H* 01/13/18 04:50 ABG pO2 81 mmHg (85-104) L 01/13/18 04:50 ABG O2 Saturation 93 % (95-98) L 01/13/18 04:50 PT/INR, D-dimer PT 11.3 Seconds (9.4-12.1) 01/10/18 19:17 - Impressions Impressions Chest CT 01/13/18 11:29 IMPRESSION: Tiny pleural effusions are seen bilaterally suggesting fluid overload. There is adjacent consolidation seen at the lung bases, favored to represent atelectasis rather than pneumonia. Tiny pulmonary nodule on the left, new compared to prior, favored to be postinflammatory infectious. Severe emphysema RECOMMENDATIONS: Fleischner Society guidelines for follow-up and management of incidentally detected pulmonary nodules: Single Solid Nodule: Nodule size less than 6 mm In a low-risk patient, no routine follow-up. In a high-risk patient, optional CT at 12 months. - Low risk patients include individuals with minimal or absent history of smoking and other known risk factors. - High risk patients include individuals with a history or smoking or known risk factors. Radiology 2017 http://pubs.[facility]na.org/doi/full/10.1148/radiol.[email or web address] D/ / Graham Ramirez MD / Graham Ramirez MD Interpreting Provider: Graham Ramirez MD Consult Discharge Plan - Plan Referrals: Zhen Almanzar MD [Primary Care Provider] - 01/17/18 11:30 am
[2018-01-14] MEDS: Budesonide/Formoterol 160/4.5 MDI IH SCH ×2 (08:15→20:32)
[2018-01-14] MEDS ORDERED: NON-FORMULARY MEDICATION 1 EACH EACH (Umeclidinium Bromide [Incruse Ellipta] 1 PUFF) IH SCH (09:00)
--- NOTE | 2018-01-14 09:43 | Pulmonology Progress Note ---
Date of Encounter: 01/14/18 Time of Encounter: 08:10 Assessment and Plan (1) Acute on chronic respiratory failure with hypoxia and hypercapnia Current Visit: Yes Status: Acute Patient with advanced COPD and she is on appropriate treatment at this time and she is able to come off on noninvasive ventilation, however overall prognosis is poor and palliative care consultation is pending. Adviced patient to follow-up as outpatient when she is discharged and she will need to be qualified for noninvasive ventilation due to extreme hypercapnia on presentation and as outpatient and she will need pulmonary rehabilitation and due to her relatively young age other intervention such as lung volume reduction surgery would be considered. However she will need to be compliant and also no smoking and be able to participate in pulmonary rehabilitation. Please call for any questions. (2) COPD with exacerbation Current Visit: Yes Status: Acute Subjective Principal diagnosis: AECOPD Interval history: Patient stated that she is feeling better now and she is off BiPAP Objective PUL Vital signs: Last Vital Signs Temp 97.4 F L 01/14/18 07:13 Pulse 97 01/14/18 07:13 Resp 27 01/14/18 08:38 BP 103/60 01/14/18 07:13 Pulse Ox 93 01/14/18 08:38 General appearance: no acute distress General: Patient is in no acute distress. HEENT: Normocephalic atraumatic, pupils are equal round and reactive to light and accommodation, anicteric sclera, nares is patent, mucous membranes moist, no JVD, trachea is midline Cardiovascular: Normal sinus rhythm, S1 and S2 audible, no murmur or rubs Respiratory: Diminished to auscultation bilaterally. No acute distress. No wheezing. Patient not using accessory muscles. Abdomen: Soft, nontender, nondistended, positive bowel sounds in all 4 quadrants Extremities: Warm, dry, trace lower extremity edema. Normal capillary refill. Neuro: Alert and oriented and follows commands. Grossly no neuro deficits. Skin: Warm to touch : No obvious abnormalities. Psych: Normal Results - Laboratory Findings CBC and BMP: 01/14/18 03:56 01/14/18 03:56 ABG ABG pH 7.33 pH Units (7.32-7.45) 01/13/18 04:50 ABG pCO2 121 mmHg (35-45) H* 01/13/18 04:50 ABG pO2 81 mmHg (85-104) L 01/13/18 04:50 ABG O2 Saturation 93 % (95-98) L 01/13/18 04:50 PT/INR, D-dimer PT 11.3 Seconds (9.4-12.1) 01/10/18 19:17 Abnormal lab findings: Abnormal lab results MCV 103.6 fL (83.0-100.0) H 01/14/18 03:56 MCHC 30.2 g/dL (31.6-35.5) L 01/14/18 03:56 RDW 14.6 % (11.5-14.5) H 01/14/18 03:56 Lymphocytes # 0.4 K/mcL (0.6-4.6) L 01/14/18 03:56 ABG pCO2 121 mmHg (35-45) H* 01/13/18 04:50 ABG pO2 81 mmHg (85-104) L 01/13/18 04:50 ABG HCO3 63 mEq/L (21-27) H 01/13/18 04:50 ABG Total CO2 67 mEq/L (20-26) H 01/13/18 04:50 ABG O2 Saturation 93 % (95-98) L 01/13/18 04:50 ABG Base Excess 29 mEq/L (-2 to 3) H 01/13/18 04:50 VBG pCO2 112 mmHg (41-51) H* 01/14/18 04:06 VBG pO2 137 mmHg (25-50) H 01/14/18 04:06 VBG HCO3 58 mEq/L (21-27) H 01/14/18 04:06 Chloride 83 mEq/L (98-107) L 01/14/18 03:56 Carbon Dioxide > 45 mEq/L (23-29) H* 01/14/18 03:56 Creatinine 0.29 mg/dL (0.60-1.20) L 01/14/18 03:56 BUN/Creatinine Ratio 48 (6-26) H 01/14/18 03:56 Glucose 183 mg/dL (70-105) H 01/14/18 03:56 Serum Total Protein 5.1 g/dL (6.4-8.9) L 01/11/18 04:47 Albumin 3.1 g/dL (3.5-5.7) L 01/11/18 04:47 Globulin 2.0 g/dL (2.4-3.5) L 01/11/18 04:47 Urine Clarity Cloudy (Clear) A 01/12/18 01:40 Urine Microscopic RBC 5-15 per hpf (0-3) H 01/12/18 01:40 Ur Squamous Epith Cells Many per lpf (None-Few) H 01/12/18 01:40 - Clinical Findings Intake & Output: Intake & Output 01/13/18 01/14/18 01/14/18 23:59 07:59 15:59 Intake Total 100 / 100 0 / 0 Output Total 550 / 550 150 / 150 Balance -450 / -450 -150 / -150 0 / 0 Weight 51.9 kg Consult Discharge Plan - Plan Referrals: Zhen Almanzar MD [Primary Care Provider] - 01/17/18 11:30 am
--- NOTE | 2018-01-14 10:52 | Palliative - Consult Note ---
Date of Encounter: 01/14/18 Time of Encounter: 08:45 - Assessment and Plan (1) Pneumonia Current Visit: No Status: Acute Assessment and plan: Patient desires aggressive treatment and this is being undertaken by pulmonary and medicine. White blood cell count is normal and patient is afebrile, there are no there are no blood cultures currently pending. Qualifiers: Pneumonia type: due to unspecified organism Laterality: left Lung location: lower lobe of lung Qualified Code(s): J18.1 - Lobar pneumonia, unspecified organism (2) COPD (chronic obstructive pulmonary disease) Current Visit: No Status: Chronic Assessment and plan: Patient is short of breath at rest, her pulmonary the patient does meet hospice criteria based on clinical examination history as well as sting alluded to in their note. Patient is not interested in hospice at this time per the hospitalist note reconfirmed with me please goals of care discussion. Qualifiers: COPD type: COPD with acute exacerbation Qualified Code(s): J44.1 - Chronic obstructive pulmonary disease with (acute) exacerbation (3) Cor pulmonale Current Visit: Yes Status: Acute Assessment and plan: As above, pulmonary has discussed with the patient the ramifications of the severe nature of the lung disease. Patient understands that her lungs are very serious at this time. (4) Goals of care, counseling/discussion Current Visit: Yes Status: Acute Assessment and plan: CODE STATUS, as of this morning patient is a full code, however she does not wish to be intubated long-term does not wish trach and PEG. I did go over her with her in great detail about code, that she would not want to be kept alive as a vegetable, I did tell her that given her current lungs status if she were to survive a cardiac arrest that being a "vegetable" the very real possibility. Told her the way to avoid this, even that she wanted to be a full code was to inform a medical power of [place] attorney that she would not wish to be maintained that way with trach and PEG. She is currently deciding on a medical power of [place] attorney. As above, goals of care are essentially to return home. She was just given the diagnosis by pulmonary over the weekend of how severe her lungs are and she is still awaiting this data. I did emphasize to her than the need for medical power of [place] attorney and probably also to do a living will. I have consult to social work with regard to this. I will also inform internal medicine of the discussion regarding CODE STATUS and put in a full code order for the patient. Palliative-CN HPI - Data of Consult Patient: new to practice Requesting Physician: Saul De Guzman Primary Care Provider: Zhen Almanzar MD - Consult Narrative Palliative Care/Comfort Measures: Palliative care History of present illness: Ms. Mclaughlin is a 52 year old female With a history of severe COPD admitted for pneumonia and COPD exacerbation after presenting with cough and diarrhea. Was productive of green sputum and patient was not sure if she was febrile or not. He has been treated aggressively for this. She is also been told by pulmonary that her lungs are in extremely poor condition and that based on the views with her given that she is short of breath even at rest certainly worse with any exertion and the fact that she continues to smoke makes her eligible for hospice care. Palliative care was consulted regarding having a formal goals of care discussion as CODE STATUS as the patient has been reluctant to make a CODE STATUS determination thus far and or hospitalization. I have noted that pulmonary had a very extensive conversation with the patient and goals of care, and patient confirmed this conversation. Please see the plan. At this time the patient states that she is tolerating the BiPAP reasonably well, does not feel particularly short of breath at this time, is eating well bowel movements are normalizing no nausea or vomiting no difficulty swallowing and no pain. Again palliative care is consulted regarding CODE STATUS and goals of care. CC: Saul De Guzman sob Past Med Surg Social Fam HX - Past Medical History Medical history: CHF, COPD Psychiatric history: no psych history - Past Surgical History Surgical History: hysterectomy - Social History Smoking Status: Current every day smoker Packs per day: 1 Smokeless Tobacco Status: No Alcohol use: none Drug use: none Medications and Allergies Albuterol Sulfate [Ventolin Hfa] 2 puff IH Q6H PRN 01/10/18 [History] Budesonide/Formoterol 160/4.5 [Symbicort 160/4.5] 2 puff IH BIDR 01/11/18 [ History] Clopidogrel [Plavix] 75 mg PO DAILY 01/11/18 [History] Furosemide [Lasix] 20 mg PO DAILY 01/11/18 [History] Potassium Chloride [K-Tab ER] 20 meq PO BID 01/11/18 [History] Umeclidinium [place] [Incruse Ellipta] 1 puff IH DAILY 01/11/18 [History] 3 Allergy/AdvReac Type Severity Reaction Status Date / Time aspirin AdvReac Vomiting Verified 09/06/15 19:28 - Constitutional Constitutional ROS PAL: chills, weight loss, no decreased appetite - EENT Eyes: no discharge, no dry eye, no loss of vision Ears: no ear discharge, no ear pain Ears, nose, mouth, throat: no dysphagia, no hoarseness, no lip swelling, no mouth pain - Cardiovascular Cardiovascular ROS: dyspnea on exertion, no chest pain, no chest pain at rest - Respiratory Respiratory: dyspnea, dyspnea on exertion, change in phlegm color - Gastrointestinal Gastrointestinal: diarrhea (Since resolved this was present on admission), no constipation, no nausea, no vomiting - Genitourinary Palliative ROS female: no urinary frequency, no urinary hesitancy, no urinary incontinence - Musculoskeletal Musculoskeletal ROS IM: no arthralgias, no back pain, no joint swelling - Integumentary ROS Integumentary: no rash, no skin pain, no skin ulcer - Neurological Neurological ROS: no confusion, no convulsions, no headache(s), no lack of coordination - Psychiatric Psychiatric general PM: no anxiety, no difficulty concentrating, no homicidal ideation, no suicidal ideation - Endocrine Endocrine IM: as per HPI Palliative Care-Exam - Constitutional Vitals: Temp Pulse Resp BP Pulse Ox 97.4 F L 97 27 103/60 93 01/14/18 07:13 01/14/18 07:13 01/14/18 08:38 01/14/18 07:13 01/14/18 08:38 General appearance: Present: no acute distress (Wearing BiPAP, tolerating it well), thin - Head Head Exam: Absent: atraumatic, normal inspection - Eye Eye exam: Present: EOMI, normal appearance - ENT ENT exam: Present: mucous membranes moist (Difficult to fully evaluate due to BiPAP mask) - Respiratory Respiratory exam: Present: decreased breath sounds, rales - Cardiovascular Cardiovascular exam: Present: RRR - GI/Abdominal Exam GI/Abdominal exam: Present: normal bowel sounds, soft. Absent: tenderness - Extremities Exam Extremities exam: Absent: pedal edema, tenderness - Neurological Exam Neurological exam: Present: oriented X3 - Psychiatric Psychiatric exam: Present: normal affect, normal mood. Absent: homicidal ideation, suicidal ideation - Skin Skin exam: Present: dry, warm Internal Medicine - CN: Reslt - Labs CBC & Chem 7: 01/14/18 03:56 01/14/18 03:56 Labs: Short CBC 01/14/18 Range/Units 03:56 WBC 6.2 (4.3-11.1) K/mcL Hgb 12.0 (11.5-15.4) g/dL Hct 39.8 (35.3-44.9) % Plt Count 188 (140-400) K/mcL Neutrophils # 4.8 (1.6-8.9) K/mcL BMP 01/14/18 03:56 Sodium 141 Potassium 4.7 Chloride 83 L Carbon Dioxide > 45 H* BUN 14 Creatinine 0.29 L Glucose 183 H Calcium 9.0 - ABG Interpretation ABG results: ABG ABG pH 7.33 pH Units (7.32-7.45) 01/13/18 04:50 ABG pCO2 121 mmHg (35-45) H* 01/13/18 04:50 ABG pO2 81 mmHg (85-104) L 01/13/18 04:50 ABG O2 Saturation 93 % (95-98) L 01/13/18 04:50 PT/INR, D-dimer PT 11.3 Seconds (9.4-12.1) 01/10/18 19:17 - Impressions Impressions Chest CT 01/13/18 11:29 IMPRESSION: Tiny pleural effusions are seen bilaterally suggesting fluid overload. There is adjacent consolidation seen at the lung bases, favored to represent atelectasis rather than pneumonia. Tiny pulmonary nodule on the left, new compared to prior, favored to be postinflammatory infectious. Severe emphysema RECOMMENDATIONS: Fleischner Society guidelines for follow-up and management of incidentally detected pulmonary nodules: Single Solid Nodule: Nodule size less than 6 mm In a low-risk patient, no routine follow-up. In a high-risk patient, optional CT at 12 months. - Low risk patients include individuals with minimal or absent history of smoking and other known risk factors. - High risk patients include individuals with a history or smoking or known risk factors. Radiology 2017 http://pubs.rsna.org/doi/full/10.1148/radiol.2627469702 D/ / Graham Ramirez MD / Graham Ramirez MD Interpreting Provider: Graham Ramirez MD Consult Discharge Plan - Plan Referrals: Zhen Almanzar MD [Primary Care Provider] - 01/17/18 11:30 am Palliative Quality Palliative Quality: Screen for Code Status: Yes, Screen for Goals of Care: Yes, Screen for Pain: Yes, If Pain Regimen Started, Initiate Bowel Regimen: NA, Screen for Nausea/Vomitting: Yes
[2018-01-14 15:31] LABS: VBG HCO3 59 mEq/L (21-27); VBG PCO2 109 mmHg (41-51); VBG PH 7.34 pH Units (7.32-7.42); VBG PO2 155 mmHg (25-50)
[2018-01-15] MEDS: Ipratropium/Albuterol Neb 3 ML IH SCH ×7 (00:07→23:10)
[2018-01-15] MEDS: MethylPREDNISolone 40 MG/ML VIAL IVP SCH ×2 (05:55→16:48)
[2018-01-15] MEDS: *HR* Heparin 5,000 UNIT/ML VIAL SQ SCH ×2 (05:55→16:48)
[2018-01-15 06:29] LABS: Hematocrit 43.6 % (35.3-44.9); Mean Corpuscular HGB Conc 29.8 g/dL (31.6-35.5); Mean Corpuscular Hemoglobin 30.8 pg (28.0-33.3); Mean Corpuscular Volume 103.3 fL (83.0-100.0); Mean Platelet Volume 9.4 fL (9.4-12.4); Platelet Count 193 K/mcL (140-400); Red Blood Count 4.22 M/mcL (3.82-4.97); Red Cell Distribution Width 14.3 % (11.5-14.5)
[2018-01-15 06:44] LABS: VBG HCO3 55 mEq/L (21-27); VBG PCO2 110 mmHg (41-51); VBG PH 7.31 pH Units (7.32-7.42); VBG PO2 115 mmHg (25-50)
[2018-01-15 07:03] LABS: BUN/Creatinine Ratio 45 (6-26); Blood Urea Nitrogen 17 mg/dL (6-20); Calcium 9.2 mg/dL (8.6-10.3); Carbon Dioxide > 45 mEq/L (23-29); Chloride 83 mEq/L (98-107); Glucose 273 mg/dL (70-105); Osmolality,Calculated 297 (280-300); Potassium 4.6 mEq/L (3.5-5.1); Sodium 138 mEq/L (136-145); eGFR For African Americans > 60 (> 60); eGFR For Non-African Americans > 60 (> 60)
[2018-01-15] MEDS: Budesonide/Formoterol 160/4.5 MDI IH SCH ×2 (07:26→19:50)
--- NOTE | 2018-01-15 07:30 | Electrocardiograph Report ---
[address] [address] Test Date: 2018-01-14 Pat Name: Izzy Mclaughlin Department: 110 Room: 2N01 Gender: F [employer]ining Service Supervisor: : [id number] Requested By: Saul De Guzman Order Number: [id number] Reading MD: Papo Lynch Measurements Intervals [place] Rate: 104 P: 81 GA: 126 QRS: 102 QRSD: 80 T: 74 QT: 309 QTc: 370 Interpretive Statements SINUS TACHYCARDIA RIGHT ATRIAL ENLARGEMENT LEFT ATRIAL ENLARGEMENT POSSIBLE RIGHT VENTRICULAR HYPERTROPHY Poor R wave progression Electronically Signed On 01-15-2018 7:28:28 EDT by Papo Lynch
[2018-01-15] MEDS: Furosemide 20 MG/2 ML VIAL IVP SCH (08:35)
[2018-01-15] MEDS: Azithromycin 250 MG TABLET PO SCH (08:35)
--- NOTE | 2018-01-15 09:05 | Palliative Progress Note ---
<Carissa Rowland - Last Filed: 01/15/18 10:57> Date of Encounter: 01/15/18 Time of Encounter: 09:04 - Assessment and plan (1) Goals of care, counseling/discussion Current Visit: Yes Status: Acute Assessment and plan: Patient confirmed she wishes to remain FULL CODE and is ok with short-term mechanical ventilation; she doesn't want a trach or PEG tube. Goals of care are to return home after this hospital stay. Importance of designating a medical POA and having the accompanying paperwork was reiterated, patient states she has not yet thought about who to name as her POA. She has not yet started thinking about drawing up a living will. She was off of BiPAP and on nasal cannula, appeared to be tolerating this well. (2) Pneumonia Current Visit: No Status: Acute Assessment and plan: Afebrile, no leukocytosis, maintaining SpO2 in 90's. Antibiotics per primary team. Qualifiers: Pneumonia type: due to unspecified organism Laterality: left Lung location: lower lobe of lung Qualified Code(s): J18.1 - Lobar pneumonia, unspecified organism (3) COPD with exacerbation Current Visit: Yes Status: Acute Assessment and plan: Receiving care with DuoNebs, Symbicort, Solu-medrol, and BiPAP. Does fulfill criteria for hospice based on severity of her COPD, but patient is not interested in hospice at this time. (4) Cor pulmonale Current Visit: Yes Status: Acute - Time Spent With Patient Total time spent is greater than 50% in coordination of care (as documented) at patient's floor/unit and/or counseling patient: - Subjective Interval history: Ms. Mclaughlin was seen and examined this morning while she was seated in bedside chair. She was in no apparent distress and appeared to be breathing comfortably with nasal cannula; says she has been tolerating BiPAP fine. She reports wheezing, occasional chills, occasional nausea, and some urinary incontinence as she sometimes is not able to make it to the restroom in time. She denies fevers, vomiting, chest pain, heart palpitations, cough productive of sputum, abdominal pain, diarrhea, or constipation. - Constitutional Vitals: Abnormal lab results MCV 103.3 fL (83.0-100.0) H 01/15/18 06:18 MCHC 29.8 g/dL (31.6-35.5) L 01/15/18 06:18 Lymphocytes # 0.4 K/mcL (0.6-4.6) L 01/14/18 03:56 ABG pCO2 121 mmHg (35-45) H* 01/13/18 04:50 ABG pO2 81 mmHg (85-104) L 01/13/18 04:50 ABG HCO3 63 mEq/L (21-27) H 01/13/18 04:50 ABG Total CO2 67 mEq/L (20-26) H 01/13/18 04:50 ABG O2 Saturation 93 % (95-98) L 01/13/18 04:50 ABG Base Excess 29 mEq/L (-2 to 3) H 01/13/18 04:50 VBG pH 7.31 pH Units (7.32-7.42) L 01/15/18 06:32 VBG pCO2 110 mmHg (41-51) H* 01/15/18 06:32 VBG pO2 115 mmHg (25-50) H 01/15/18 06:32 VBG HCO3 55 mEq/L (21-27) H 01/15/18 06:32 Chloride 83 mEq/L (98-107) L 01/15/18 06:18 Carbon Dioxide > 45 mEq/L (23-29) H* 01/15/18 06:18 Creatinine 0.38 mg/dL (0.60-1.20) L 01/15/18 06:18 BUN/Creatinine Ratio 45 (6-26) H 01/15/18 06:18 Glucose 273 mg/dL (70-105) H 01/15/18 06:18 POC Glucose 136 mg/dL (70-99) H 01/14/18 14:20 Serum Total Protein 5.1 g/dL (6.4-8.9) L 01/11/18 04:47 Albumin 3.1 g/dL (3.5-5.7) L 01/11/18 04:47 Globulin 2.0 g/dL (2.4-3.5) L 01/11/18 04:47 Urine Clarity Cloudy (Clear) A 01/12/18 01:40 Urine Microscopic RBC 5-15 per hpf (0-3) H 01/12/18 01:40 Ur Squamous Epith Cells Many per lpf (None-Few) H 01/12/18 01:40 General appearance: Present: no acute distress, thin Exam: appears tired - Head Head exam: Present: atraumatic, normocephalic - Eye Eye exam: Present: PERRL Pupils: Present: PERRL - Respiratory Respiratory exam: Present: decreased breath sounds, wheezes (diffuse). Absent: accessory muscle use, rales, rhonchi Additional comments: no conversational dyspnea - Cardiovascular Cardiovascular exam: Present: +S1, +S2, tachycardia (regular rhythm) - GI/Abdominal GI/Abdominal exam: Present: soft. Absent: distended, normal bowel sounds, tenderness - Extremities Exam Additional comments: mild, non-pitting, bilateral ankle edema - Neurological Exam Neurological exam: Present: alert, oriented X3. Absent: no focal deficits, facial droop, speech deficit Palliative Quality Palliative Quality: Screen for Code Status: Yes, Screen for Goals of Care: Yes, Screen for Pain: Yes, If Pain Regimen Started, Initiate Bowel Regimen: NA, Screen for Nausea/Vomitting: Yes Code Status: 01/14/18 11:16 Resuscitation Status: Active [RES] Routine Comment: Patient does not wish long-term intubation. Resuscitation Status: Full Code - Labs CBC & Chem 7: 01/15/18 06:18 01/15/18 06:18 Labs: Laboratory Results - last 24 hr 01/14/18 01/14/18 01/15/18 14:20 15:26 03:38 WBC RBC Hgb Hct MCV MCH MCHC RDW Plt Count MPV VBG pH 7.34 VBG pCO2 109 H* VBG pO2 155 H VBG HCO3 59 H Sodium Potassium Chloride Carbon Dioxide BUN Creatinine Est GFR ( Amer) Est GFR (Non-Af Amer) BUN/Creatinine Ratio Glucose POC Glucose 136 H Calculated Osmolality Calcium Magnesium 1.9 Person Notif of Elizabeth AMNALEONEL MARTINEZ 01/15/18 01/15/18 01/15/18 06:18 06:18 06:32 WBC 5.5 RBC 4.22 Hgb 13.0 Hct 43.6 MCV 103.3 H MCH 30.8 MCHC 29.8 L RDW 14.3 Plt Count 193 MPV 9.4 VBG pH 7.31 L VBG pCO2 110 H* VBG pO2 115 H VBG HCO3 55 H Sodium 138 Potassium 4.6 Chloride 83 L Carbon Dioxide > 45 H* BUN 17 Creatinine 0.38 L Est GFR ( Amer) > 60 Est GFR (Non-Af Amer) > 60 BUN/Creatinine Ratio 45 H Glucose 273 H POC Glucose Calculated Osmolality 297 Calcium 9.2 Magnesium Person Notif of Elizabeth Barbour - Impressions Impressions Echocardiogram 01/14/18 11:00 Impressions: LVEF 60-65%. Normal LV chamber size, wall thickness and function. Mild left ventricular diastolic dysfunction. Mildly dilated right ventricle with normal appearing systolic function. No evidence of pulmonary hypertension identified. RVSP not well obtained due to poor TR jet and could be underestimated. No significant valvular dysfunction. Left Ventricular Wall Motion: Rest Echo Findings All wall segments showed normal motion. Findings: Study Quality * Technically adequate exam. ECG Findings * Sinus tachycardia. Left Ventricle * LVEF 60-65%. * Normal LV chamber size, wall thickness and function. * Mild left ventricular diastolic dysfunction. Right Ventricle * Mildly dilated right ventricle with normal appearing systolic function. Left Atrium * Mildly dilated left atrium. Right Atrium * Mildly dilated right atrium. Aortic Valve * Trileaflet aortic valve with normal function. * No aortic regurgitation. * No aortic stenosis. Mitral Valve * Normal mitral valve structure and function. * No mitral regurgitation. * No mitral stenosis. Tricuspid Valve * Normal tricuspid valve structure and function. * Trace tricuspid regurgitation. * No evidence of pulmonary hypertension identified. RVSP not well obtained due to poor TR jet and could be underestimated. Pulmonic Valve * Pulmonic valve not well visualized. Aorta * Normally sized aortic root. Pericardium * The pericardium appears normal. IVC * Normal IVC dimensions and inspiratory collapse. Pulmonary Artery * Normal visualized portions of the main pulmonary artery. - ABG Interpretation ABG results: ABG ABG pH 7.33 pH Units (7.32-7.45) 01/13/18 04:50 ABG pCO2 121 mmHg (35-45) H* 01/13/18 04:50 ABG pO2 81 mmHg (85-104) L 01/13/18 04:50 ABG O2 Saturation 93 % (95-98) L 01/13/18 04:50 PT/INR, D-dimer PT 11.3 Seconds (9.4-12.1) 01/10/18 19:17 Consult Discharge Plan - Plan Referrals: Zhen Almanzar MD [Primary Care Provider] - 01/17/18 11:30 am <Jovanni Moyer - Last Filed: 01/15/18 11:49> Date of Encounter: 01/15/18 - Assessment and plan (1) Pneumonia Current Visit: No Status: Acute Qualifiers: Pneumonia type: due to unspecified organism Laterality: left Lung location: lower lobe of lung Qualified Code(s): J18.1 - Lobar pneumonia, unspecified organism (2) COPD (chronic obstructive pulmonary disease) Current Visit: No Status: Chronic Qualifiers: COPD type: COPD with acute exacerbation Qualified Code(s): J44.1 - Chronic obstructive pulmonary disease with (acute) exacerbation (3) Cor pulmonale Current Visit: Yes Status: Acute (4) Goals of care, counseling/discussion Current Visit: Yes Status: Acute - Time Spent With Patient Total time spent is greater than 50% in coordination of care (as documented) at patient's floor/unit and/or counseling patient: - Constitutional Vitals: Abnormal lab results MCV 103.3 fL (83.0-100.0) H 01/15/18 06:18 MCHC 29.8 g/dL (31.6-35.5) L 01/15/18 06:18 Lymphocytes # 0.4 K/mcL (0.6-4.6) L 01/14/18 03:56 ABG pCO2 121 mmHg (35-45) H* 01/13/18 04:50 ABG pO2 81 mmHg (85-104) L 01/13/18 04:50 ABG HCO3 63 mEq/L (21-27) H 01/13/18 04:50 ABG Total CO2 67 mEq/L (20-26) H 01/13/18 04:50 ABG O2 Saturation 93 % (95-98) L 01/13/18 04:50 ABG Base Excess 29 mEq/L (-2 to 3) H 01/13/18 04:50 VBG pH 7.31 pH Units (7.32-7.42) L 01/15/18 06:32 VBG pCO2 110 mmHg (41-51) H* 01/15/18 06:32 VBG pO2 115 mmHg (25-50) H 01/15/18 06:32 VBG HCO3 55 mEq/L (21-27) H 01/15/18 06:32 Chloride 83 mEq/L (98-107) L 01/15/18 06:18 Carbon Dioxide > 45 mEq/L (23-29) H* 01/15/18 06:18 Creatinine 0.38 mg/dL (0.60-1.20) L 01/15/18 06:18 BUN/Creatinine Ratio 45 (6-26) H 01/15/18 06:18 Glucose 273 mg/dL (70-105) H 01/15/18 06:18 POC Glucose 136 mg/dL (70-99) H 01/14/18 14:20 Serum Total Protein 5.1 g/dL (6.4-8.9) L 01/11/18 04:47 Albumin 3.1 g/dL (3.5-5.7) L 01/11/18 04:47 Globulin 2.0 g/dL (2.4-3.5) L 01/11/18 04:47 Urine Clarity Cloudy (Clear) A 01/12/18 01:40 Urine Microscopic RBC 5-15 per hpf (0-3) H 01/12/18 01:40 Ur Squamous Epith Cells Many per lpf (None-Few) H 01/12/18 01:40 - Attending Attestation I examined this patient and my medical decision-making was reviewed with the Resident Physician. I agree with the documented findings, disposition and treatment plan as described except to the extent set forth below. Palliative Quality Code Status: 01/14/18 11:16 Resuscitation Status: Active [RES] Routine Comment: Patient does not wish long-term intubation. Resuscitation Status: Full Code - Labs CBC & Chem 7: 01/15/18 06:18 01/15/18 06:18 Labs: Laboratory Results - last 24 hr 01/14/18 01/14/18 01/15/18 14:20 15:26 03:38 WBC RBC Hgb Hct MCV MCH MCHC RDW Plt Count MPV VBG pH 7.34 VBG pCO2 109 H* VBG pO2 155 H VBG HCO3 59 H Sodium Potassium Chloride Carbon Dioxide BUN Creatinine Est GFR ( Amer) Est GFR (Non-Af Amer) BUN/Creatinine Ratio Glucose POC Glucose 136 H Calculated Osmolality Calcium Magnesium 1.9 Person Notif of Elizabeth MARTINEZ 01/15/18 01/15/18 01/15/18 06:18 06:18 06:32 WBC 5.5 RBC 4.22 Hgb 13.0 Hct 43.6 MCV 103.3 H MCH 30.8 MCHC 29.8 L RDW 14.3 Plt Count 193 MPV 9.4 VBG pH 7.31 L VBG pCO2 110 H* VBG pO2 115 H VBG HCO3 55 H Sodium 138 Potassium 4.6 Chloride 83 L Carbon Dioxide > 45 H* BUN 17 Creatinine 0.38 L Est GFR ( Amer) > 60 Est GFR (Non-Af Amer) > 60 BUN/Creatinine Ratio 45 H Glucose 273 H POC Glucose Calculated Osmolality 297 Calcium 9.2 Magnesium Person Notif of Elizabeth aBrbour - Impressions Impressions Echocardiogram 01/14/18 11:00 Impressions: LVEF 60-65%. Normal LV chamber size, wall thickness and function. Mild left ventricular diastolic dysfunction. Mildly dilated right ventricle with normal appearing systolic function. No evidence of pulmonary hypertension identified. RVSP not well obtained due to poor TR jet and could be underestimated. No significant valvular dysfunction. Left Ventricular Wall Motion: Rest Echo Findings All wall segments showed normal motion. Findings: Study Quality * Technically adequate exam. ECG Findings * Sinus tachycardia. Left Ventricle * LVEF 60-65%. * Normal LV chamber size, wall thickness and function. * Mild left ventricular diastolic dysfunction. Right Ventricle * Mildly dilated right ventricle with normal appearing systolic function. Left Atrium * Mildly dilated left atrium. Right Atrium * Mildly dilated right atrium. Aortic Valve * Trileaflet aortic valve with normal function. * No aortic regurgitation. * No aortic stenosis. Mitral Valve * Normal mitral valve structure and function. * No mitral regurgitation. * No mitral stenosis. Tricuspid Valve * Normal tricuspid valve structure and function. * Trace tricuspid regurgitation. * No evidence of pulmonary hypertension identified. RVSP not well obtained due to poor TR jet and could be underestimated. Pulmonic Valve * Pulmonic valve not well visualized. Aorta * Normally sized aortic root. Pericardium * The pericardium appears normal. IVC * Normal IVC dimensions and inspiratory collapse. Pulmonary Artery * Normal visualized portions of the main pulmonary artery. - ABG Interpretation ABG results: ABG ABG pH 7.33 pH Units (7.32-7.45) 01/13/18 04:50 ABG pCO2 121 mmHg (35-45) H* 01/13/18 04:50 ABG pO2 81 mmHg (85-104) L 01/13/18 04:50 ABG O2 Saturation 93 % (95-98) L 01/13/18 04:50 PT/INR, D-dimer PT 11.3 Seconds (9.4-12.1) 01/10/18 19:17
--- NOTE | 2018-01-15 18:00 | Internal Med Progress Note ---
Date of Encounter: 01/15/18 Time of Encounter: 10:00 - Assessment and plan (1) COPD (chronic obstructive pulmonary disease) Current Visit: Yes Status: Acute Assessment and plan: Advanced COPD in chronic active smoker. Pulmonology recommendations appreciated , taper down IV steroids as tolerated. Continue macrolides, diuresis as tolerated and inhaled corticosteroids. Continue supplemental oxygen, continues to require high flow oxygen. BiPAP dependent at this time, we will order overnight BiPAP qualification study. ABG shows mild respiratory acidosis at 7.31, with elevated PCO2 at 110. Plan of care explained to patient and family bedside. Encouraged patient to complete power of insurance defense attorney paperwork. Palliative care has been consulted, patient wishes to remain full code at this time. Not interested in Hospice at this time; Qualifiers: COPD type: COPD with acute exacerbation Qualified Code(s): J44.1 - Chronic obstructive pulmonary disease with (acute) exacerbation (2) DVT prophylaxis Current Visit: Yes Status: Acute (3) Acute on chronic respiratory failure with hypoxia and hypercapnia Current Visit: Yes Status: Acute Assessment and plan: Due to COPD and possible pneumonia. (4) CAP (community acquired pneumonia) Current Visit: Yes Status: Acute Assessment and plan: continue Azithromycin, initially received Rocephin and Zithromax; supplemental O2 and supportive care; Qualifiers: Laterality: left Lung location: lower lobe of lung Qualified Code(s): J18.1 - Lobar pneumonia, unspecified organism (5) Cor pulmonale Current Visit: Yes Status: Chronic Assessment and plan: Echo showed preserved EF, mild diastolic dysfunction, mild LV dilation. Continue IV Lasix as tolerated. Persistent sinus tachycardia, will start low- dose metoprolol. Continue telemetry monitoring. - Time Spent With Patient Total time spent is greater than 50% in coordination of care (as documented) at patient's floor/unit and/or counseling patient: - Subjective Interval history: feels about the same; continues to wear BiPAP most of the time, requires 5L/min O2; has exertional dyspnea; no cough or chest pain; d/w her boyfriend at bedside ; - Constitutional Vitals: Temp Pulse Resp BP Pulse Ox 98.6 F 114 18 122/77 87 01/15/18 16:00 01/15/18 16:00 01/15/18 16:00 01/15/18 16:00 01/15/18 16:00 General appearance: Present: mild distress, A&O X 3 (on BiPAP), answers questions appropriately - Respiratory Respiratory exam: Present: decreased breath sounds (B/L decreased air entry), CTAB. Absent: accessory muscle use, rales, rhonchi, wheezes - Cardiovascular Cardiovascular exam: Present: RRR, +S1, +S2, tachycardia. Absent: diastolic murmur, gallop, rubs, systolic murmur - GI/Abdominal GI/Abdominal exam: Present: normal bowel sounds, soft, no peritoneal signs. Absent: distended, tenderness - Extremities Exam Extremities exam: Present: full ROM, pedal edema, warm, radial pulses palpable and symmetrical. Absent: calf tenderness, cyanotic - Neurological Exam Neurological exam: Present: CN II-XII intact, oriented X3, no focal deficits. Absent: pronater drift, facial droop, speech deficit Internal Medicine: Result - Labs CBC & Chem 7: 01/15/18 06:18 01/15/18 06:18 Labs: Short CBC 01/15/18 Range/Units 06:18 WBC 5.5 (4.3-11.1) K/mcL Hgb 13.0 (11.5-15.4) g/dL Hct 43.6 (35.3-44.9) % Plt Count 193 (140-400) K/mcL BMP 01/15/18 06:18 Sodium 138 Potassium 4.6 Chloride 83 L Carbon Dioxide > 45 H* BUN 17 Creatinine 0.38 L Glucose 273 H Calcium 9.2 - ABG Interpretation ABG results: ABG ABG pH 7.33 pH Units (7.32-7.45) 01/13/18 04:50 ABG pCO2 121 mmHg (35-45) H* 01/13/18 04:50 ABG pO2 81 mmHg (85-104) L 01/13/18 04:50 ABG O2 Saturation 93 % (95-98) L 01/13/18 04:50 PT/INR, D-dimer PT 11.3 Seconds (9.4-12.1) 01/10/18 19:17 - VTE Documentation of Mechanical Device: Graduated compression elastic hosiery Consult Discharge Plan - Plan Referrals: Zhen Almanzar MD [Primary Care Provider] - 01/17/18 11:30 am
[2018-01-16] MEDS: Ipratropium/Albuterol Neb 3 ML IH SCH ×6 (04:09→23:16)
[2018-01-16] MEDS: MethylPREDNISolone 40 MG/ML VIAL IVP SCH (05:45)
[2018-01-16] MEDS: *HR* Heparin 5,000 UNIT/ML VIAL SQ SCH ×2 (05:45→17:32)
[2018-01-16 06:14] LABS: BUN/Creatinine Ratio 47 (6-26); Blood Urea Nitrogen 17 mg/dL (6-20); Carbon Dioxide > 45 mEq/L (23-29); Chloride 84 mEq/L (98-107); Glucose 112 mg/dL (70-105); Magnesium 1.8 mg/dL (1.6-2.6); Osmolality,Calculated 296 (280-300); Potassium 4.7 mEq/L (3.5-5.1); Sodium 142 mEq/L (136-145); eGFR For African Americans > 60 (> 60); eGFR For Non-African Americans > 60 (> 60)
--- NOTE | 2018-01-16 07:55 | Palliative Progress Note ---
Date of Encounter: 01/16/18 Time of Encounter: 07:45 - Assessment and plan (1) Pneumonia Current Visit: No Status: Acute Assessment and plan: No fever, normal white count as of yesterday, no blood cultures currently pending. On azithromycin Qualifiers: Pneumonia type: due to unspecified organism Laterality: left Lung location: lower lobe of lung Qualified Code(s): J18.1 - Lobar pneumonia, unspecified organism (2) COPD (chronic obstructive pulmonary disease) Current Visit: Yes Status: Acute Assessment and plan: Severe COPD, as been mostly BiPAP dependent although currently doing quite well on just nasal cannula. No labs back yet today. Although I do note the patient' s mentation is quite good. Qualifiers: COPD type: COPD with acute exacerbation Qualified Code(s): J44.1 - Chronic obstructive pulmonary disease with (acute) exacerbation (3) Cor pulmonale Current Visit: Yes Status: Chronic Assessment and plan: Severe per pulmonary. Plan per pulmonary and hospitalist team. It appears pulmonary will follow-up as an outpatient (4) Goals of care, counseling/discussion Current Visit: Yes Status: Acute Assessment and plan: Patient is full code, however she wishes to not be intubated long-term. She is making arrangements with a friend of the family to be the medical power of securities attorney I have with her and discussed the importance of letting this person no does not does not want as she still wants to be aggressive in her care fact that she understands her lungs are quite bad. He states that she still has a "lot of grandmother ring to do" we discussed making a video dietary for her various grandchildren. Although she is more than hospice eligible based on her incredibly high PCO2 is absolutely not ready for it mentally. I actually recommend no further conversations regarding this during this hospitalization unless she has questions. Because the patient is clear on what her goals are and she is clear on her CODE STATUS palliative care will follow at a distance. - Time Spent With Patient Total time spent is greater than 50% in coordination of care (as documented) at patient's floor/unit and/or counseling patient: - Subjective Interval history: The patient is feeling much better this morning and is very chatty. sHe is speaking in full sentences without any difficulty whatsoever. She states that her last bowel movement was a "few days ago, this is completely normal for her she does not feel any need for assistance with bowel movements no abdominal pain. Last recorded bowel movement was on the eighth. He states she is going to go outside the family for medical power of securities attorney. She had no other questions regarding status for dance care planning. - Constitutional Vitals: Abnormal lab results MCV 103.3 fL (83.0-100.0) H 01/15/18 06:18 MCHC 29.8 g/dL (31.6-35.5) L 01/15/18 06:18 Lymphocytes # 0.4 K/mcL (0.6-4.6) L 01/14/18 03:56 ABG pCO2 121 mmHg (35-45) H* 01/13/18 04:50 ABG pO2 81 mmHg (85-104) L 01/13/18 04:50 ABG HCO3 63 mEq/L (21-27) H 01/13/18 04:50 ABG Total CO2 67 mEq/L (20-26) H 01/13/18 04:50 ABG O2 Saturation 93 % (95-98) L 01/13/18 04:50 ABG Base Excess 29 mEq/L (-2 to 3) H 01/13/18 04:50 VBG pH 7.31 pH Units (7.32-7.42) L 01/15/18 06:32 VBG pCO2 110 mmHg (41-51) H* 01/15/18 06:32 VBG pO2 115 mmHg (25-50) H 01/15/18 06:32 VBG HCO3 55 mEq/L (21-27) H 01/15/18 06:32 Chloride 84 mEq/L (98-107) L 01/16/18 04:59 Carbon Dioxide > 45 mEq/L (23-29) H* 01/16/18 04:59 Creatinine 0.36 mg/dL (0.60-1.20) L 01/16/18 04:59 BUN/Creatinine Ratio 47 (6-26) H 01/16/18 04:59 Glucose 112 mg/dL (70-105) H 01/16/18 04:59 POC Glucose 136 mg/dL (70-99) H 01/14/18 14:20 Serum Total Protein 5.1 g/dL (6.4-8.9) L 01/11/18 04:47 Albumin 3.1 g/dL (3.5-5.7) L 01/11/18 04:47 Globulin 2.0 g/dL (2.4-3.5) L 01/11/18 04:47 Urine Clarity Cloudy (Clear) A 01/12/18 01:40 Urine Microscopic RBC 5-15 per hpf (0-3) H 01/12/18 01:40 Ur Squamous Epith Cells Many per lpf (None-Few) H 01/12/18 01:40 General appearance: Present: no acute distress - Respiratory Respiratory exam: Present: decreased breath sounds - Cardiovascular Cardiovascular exam: Present: RRR - GI/Abdominal GI/Abdominal exam: Present: normal bowel sounds, soft. Absent: tenderness - Extremities Exam Extremities exam: Present: pedal edema (Puffy) - Neurological Exam Neurological exam: Present: alert, oriented X3 - Psychiatric Psychiatric exam: Present: normal affect, normal mood. Absent: agitated, anxious - Skin Skin exam: Present: dry, warm Palliative Quality Palliative Quality: Screen for Code Status: Yes, Screen for Goals of Care: Yes, Screen for Pain: Yes, If Pain Regimen Started, Initiate Bowel Regimen: NA, Screen for Nausea/Vomitting: Yes Code Status: 01/14/18 11:16 Resuscitation Status: Active [RES] Routine Comment: Patient does not wish long-term intubation. Resuscitation Status: Full Code - Labs CBC & Chem 7: 01/15/18 06:18 01/16/18 04:59 Labs: Laboratory Results - last 24 hr 01/16/18 04:59 Sodium 142 Potassium 4.7 Chloride 84 L Carbon Dioxide > 45 H* BUN 17 Creatinine 0.36 L Est GFR ( Amer) > 60 Est GFR (Non-Af Amer) > 60 BUN/Creatinine Ratio 47 H Glucose 112 H Calculated Osmolality 296 Calcium 9.0 Magnesium 1.8 - ABG Interpretation ABG results: ABG ABG pH 7.33 pH Units (7.32-7.45) 01/13/18 04:50 ABG pCO2 121 mmHg (35-45) H* 01/13/18 04:50 ABG pO2 81 mmHg (85-104) L 01/13/18 04:50 ABG O2 Saturation 93 % (95-98) L 01/13/18 04:50 PT/INR, D-dimer PT 11.3 Seconds (9.4-12.1) 01/10/18 19:17 Consult Discharge Plan - Plan Referrals: Zhen Almanzar MD [Primary Care Provider] - 01/17/18 11:30 am
[2018-01-16] MEDS: Furosemide 20 MG/2 ML VIAL IVP SCH (08:53)
[2018-01-16] MEDS: Azithromycin 250 MG TABLET PO SCH (08:53)
[2018-01-16] MEDS: Budesonide/Formoterol 160/4.5 MDI IH SCH ×2 (11:47→20:24)
[2018-01-16] MEDS ORDERED: Sennosides/Docusate Sodium TABLET PO PRN (14:45)
--- NOTE | 2018-01-16 16:00 | Internal Med Progress Note ---
Date of Encounter: 01/16/18 Time of Encounter: 10:15 - Assessment and plan (1) COPD (chronic obstructive pulmonary disease) Current Visit: Yes Status: Acute Assessment and plan: Advanced COPD in chronic active smoker. Pulmonology recommendations appreciated , taper down IV steroids as tolerated, and will plan for prolonged oral steroid taper. Continue macrolides, diuresis as tolerated and inhaled corticosteroids. will change LASIX TO PO form; Continue supplemental oxygen, improving O2 requirements; BiPAP dependent at this time; overnight BiPAP qualification study completed and qualified. Encouraged patient to complete power of compliance attorney paperwork. Palliative care has been consulted, patient wishes to remain full code at this time. Not interested in Hospice at this time; Qualifiers: COPD type: COPD with acute exacerbation Qualified Code(s): J44.1 - Chronic obstructive pulmonary disease with (acute) exacerbation (2) DVT prophylaxis Current Visit: Yes Status: Acute (3) Acute on chronic respiratory failure with hypoxia and hypercapnia Current Visit: Yes Status: Acute Assessment and plan: Due to COPD and possible pneumonia. (4) CAP (community acquired pneumonia) Current Visit: Yes Status: Acute Assessment and plan: continue Azithromycin, initially received Rocephin and Zithromax; supplemental O2 and supportive care; Qualifiers: Laterality: left Lung location: lower lobe of lung Qualified Code(s): J18.1 - Lobar pneumonia, unspecified organism (5) Cor pulmonale Current Visit: Yes Status: Chronic Assessment and plan: Echo showed preserved EF, mild diastolic dysfunction, mild LV dilation. Continue PO Lasix and Metoprolol as tolerated. Continue telemetry monitoring. - Time Spent With Patient Total time spent is greater than 50% in coordination of care (as documented) at patient's floor/unit and/or counseling patient: - Subjective Interval history: continues to appear tired; on BiPAP; had overnight study and qualified for BiPAP ; no chest pain, palpitations, cough; reports constipation to nursing staff; - Constitutional Vitals: Temp Pulse Resp BP Pulse Ox 98.9 F 99 18 101/59 88 01/16/18 11:45 01/16/18 11:45 01/16/18 11:50 01/16/18 11:45 01/16/18 11:50 General appearance: Present: mild distress, A&O X 3, answers questions appropriately - Respiratory Respiratory exam: Present: decreased breath sounds (B/L decreased air entry), CTAB. Absent: accessory muscle use, rales, rhonchi, wheezes - Cardiovascular Cardiovascular exam: Present: RRR, +S1, +S2. Absent: diastolic murmur, gallop, rubs, systolic murmur - GI/Abdominal GI/Abdominal exam: Present: normal bowel sounds, soft, no peritoneal signs. Absent: distended, tenderness Internal Medicine: Result - Labs CBC & Chem 7: 01/15/18 06:18 01/16/18 04:59 Labs: BMP 01/16/18 04:59 Sodium 142 Potassium 4.7 Chloride 84 L Carbon Dioxide > 45 H* BUN 17 Creatinine 0.36 L Glucose 112 H Calcium 9.0 - ABG Interpretation ABG results: ABG ABG pH 7.33 pH Units (7.32-7.45) 01/13/18 04:50 ABG pCO2 121 mmHg (35-45) H* 01/13/18 04:50 ABG pO2 81 mmHg (85-104) L 01/13/18 04:50 ABG O2 Saturation 93 % (95-98) L 01/13/18 04:50 PT/INR, D-dimer PT 11.3 Seconds (9.4-12.1) 01/10/18 19:17 - VTE Documentation of Mechanical Device: Graduated compression elastic hosiery Consult Discharge Plan - Plan Referrals: Zhen Almanzar MD [Primary Care Provider] - 01/23/18 11:30 am
[2018-01-16] MEDS: predniSONE 20 MG TABLET PO SCH (17:32)
[2018-01-17] MEDS: Ipratropium/Albuterol Neb 3 ML IH SCH ×5 (03:45→19:55)
[2018-01-17 03:46] LABS: Basophils % 0.3 %; Hematocrit 42.1 % (35.3-44.9); Hemoglobin 12.9 g/dL (11.5-15.4); Immature Granulocytes % 3.9 % (0-4); Lymphocytes # 0.3 K/mcL (0.6-4.6); Lymphocytes % 3.9 %; Mean Corpuscular HGB Conc 30.6 g/dL (31.6-35.5); Mean Corpuscular Hemoglobin 30.9 pg (28.0-33.3); Mean Corpuscular Volume 100.7 fL (83.0-100.0); Mean Platelet Volume 9.8 fL (9.4-12.4); Monocytes # 0.5 K/mcL (0.0-1.3); Monocytes % 7.5 %; Neutrophils # 5.4 K/mcL (1.6-8.9); Platelet Count 168 K/mcL (140-400); Red Blood Count 4.18 M/mcL (3.82-4.97); Red Cell Distribution Width 14.5 % (11.5-14.5); Segmented Neutrophils % 84.4 %
[2018-01-17 03:56] LABS: VBG HCO3 54 mEq/L (21-27); VBG PCO2 95 mmHg (41-51); VBG PH 7.36 pH Units (7.32-7.42); VBG PO2 92 mmHg (25-50)
[2018-01-17 04:25] LABS: BUN/Creatinine Ratio 39 (6-26); Blood Urea Nitrogen 14 mg/dL (6-20); Calcium 8.8 mg/dL (8.6-10.3); Carbon Dioxide > 45 mEq/L (23-29); Chloride 86 mEq/L (98-107); Glucose 187 mg/dL (70-105); Osmolality,Calculated 293 (280-300); Potassium 4.9 mEq/L (3.5-5.1); Sodium 139 mEq/L (136-145); eGFR For African Americans > 60 (> 60); eGFR For Non-African Americans > 60 (> 60)
[2018-01-17] MEDS: *HR* Heparin 5,000 UNIT/ML VIAL SQ SCH ×2 (05:54→17:17)
[2018-01-17] MEDS: Budesonide/Formoterol 160/4.5 MDI IH SCH ×2 (07:16→19:56)
[2018-01-17] MEDS: predniSONE 20 MG TABLET PO SCH (08:16)
[2018-01-17] MEDS: Furosemide 40 MG TABLET PO SCH (08:16)
[2018-01-17] MEDS: Azithromycin 250 MG TABLET PO SCH (08:16)
--- NOTE | 2018-01-17 08:52 | Event Note ---
<Carissa Rowland - Last Filed: 01/17/18 08:45> Date of Encounter: 01/17/18 Time of Encounter: 08:45 Patient seen and examined this morning; she is sitting in bedside chair wearing nasal cannula and eating breakfast. Other than feeling cold, she endorses no complaints today.She is feeling fine today. Diminished breath sounds bilaterally , no wheezes/rhonchi/rales, no conversational dyspnea, normal respiratory effort. <Jovanni Moyer - Last Filed: 01/17/18 08:54> Date of Encounter: 01/17/18 I examined this patient and my medical decision-making was reviewed with the Resident Physician. I agree with the documented findings, disposition and treatment plan as described except to the extent set forth below. At this point patient's CODE STATUS has been well delineated patient is a full code with her term intubation being okay,who she wishes to have for her medical power of attorney at law and social work is working with her on this. At this point in time palliative we will go ahead and follow from a distance. She may be discharged home soon.
[2018-01-17] MEDS: Sennosides/Docusate Sodium TABLET PO SCH ×2 (14:03→21:19)
--- NOTE | 2018-01-17 14:08 | Internal Med Progress Note ---
Date of Encounter: 01/17/18 Time of Encounter: 10:00 - Assessment and plan (1) COPD (chronic obstructive pulmonary disease) Current Visit: Yes Status: Acute Assessment and plan: Advanced COPD in chronic active smoker. Pulmonology recommendations appreciated , recommend prolonged oral steroid taper. Continue macrolides, diuresis as tolerated and inhaled corticosteroids. Continue supplemental oxygen; overnight BiPAP qualification study completed and qualified. Patient completed power of title attorney paperwork. Palliative care has been consulted, patient wishes to remain full code at this time. Not interested in Hospice at this time; Patient agreeable to [place] swing placement as her SO is concerned he may not be able to provide complete care; PT evaluation recommends [facility]; veterans services specialist on board; Qualifiers: COPD type: COPD with acute exacerbation Qualified Code(s): J44.1 - Chronic obstructive pulmonary disease with (acute) exacerbation (2) DVT prophylaxis Current Visit: Yes Status: Acute (3) Acute on chronic respiratory failure with hypoxia and hypercapnia Current Visit: Yes Status: Acute (4) CAP (community acquired pneumonia) Current Visit: Yes Status: Acute Qualifiers: Laterality: left Lung location: lower lobe of lung Qualified Code(s): J18.1 - Lobar pneumonia, unspecified organism (5) Cor pulmonale Current Visit: Yes Status: Chronic Assessment and plan: Echo showed preserved EF, mild diastolic dysfunction, mild LV dilation. Continue PO Lasix and Metoprolol as tolerated. Continue telemetry monitoring. Significant metabolic acidosis noted, due to CO2 retention and use of Lasix, but pH is 7.36; - Time Spent With Patient Total time spent is greater than 50% in coordination of care (as documented) at patient's floor/unit and/or counseling patient: - Subjective Interval history: Appears better today; out of bed to chair; has abdominal pain and constipation; improving dyspnea; no chest pain, cough, palpitations; agreeable to be discharged to swing bed; - Constitutional Vitals: Temp Pulse Resp BP Pulse Ox 98.7 F 102 18 114/72 89 01/17/18 12:06 01/17/18 12:06 01/17/18 12:06 01/17/18 12:06 01/17/18 12:06 General appearance: Present: A&O X 3, answers questions appropriately - Respiratory Respiratory exam: Present: decreased breath sounds (B/L decreased air entry), CTAB. Absent: accessory muscle use, rales, rhonchi, wheezes - Cardiovascular Cardiovascular exam: Present: RRR, +S1, +S2, tachycardia. Absent: diastolic murmur, gallop, rubs, systolic murmur Internal Medicine: Result - Labs CBC & Chem 7: 01/17/18 03:34 01/17/18 03:34 Labs: Short CBC 01/17/18 Range/Units 03:34 WBC 6.4 (4.3-11.1) K/mcL Hgb 12.9 (11.5-15.4) g/dL Hct 42.1 (35.3-44.9) % Plt Count 168 (140-400) K/mcL Neutrophils # 5.4 (1.6-8.9) K/mcL BMP 01/17/18 03:34 Sodium 139 Potassium 4.9 Chloride 86 L Carbon Dioxide > 45 H* BUN 14 Creatinine 0.36 L Glucose 187 H Calcium 8.8 - ABG Interpretation ABG results: ABG ABG pH 7.33 pH Units (7.32-7.45) 01/13/18 04:50 ABG pCO2 121 mmHg (35-45) H* 01/13/18 04:50 ABG pO2 81 mmHg (85-104) L 01/13/18 04:50 ABG O2 Saturation 93 % (95-98) L 01/13/18 04:50 PT/INR, D-dimer PT 11.3 Seconds (9.4-12.1) 01/10/18 19:17 - VTE Documentation of Mechanical Device: Graduated compression elastic hosiery Consult Discharge Plan - Plan Referrals: Zhen Almanzar MD [Primary Care Provider] - 01/23/18 11:30 am
[2018-01-17] MEDS ORDERED: Mag Hydrox/Al Hydrox/Simeth 30 ML UDC PO PRN (14:43)
[2018-01-18] MEDS: Ipratropium/Albuterol Neb 3 ML IH SCH ×7 (00:02→23:28)
[2018-01-18 03:41] LABS: Basophils % 0.1 %; Eosinophils % 0.3 %; Hematocrit 37.9 % (35.3-44.9); Hemoglobin 11.9 g/dL (11.5-15.4); Immature Granulocytes % 1.6 % (0-4); Immature Platelets 5.3 % (1.1-6.1); Lymphocytes % 14.1 %; Mean Corpuscular HGB Conc 31.4 g/dL (31.6-35.5); Mean Corpuscular Hemoglobin 31.4 pg (28.0-33.3); Mean Platelet Volume 9.7 fL (9.4-12.4); Monocytes # 1.3 K/mcL (0.0-1.3); Monocytes % 17.4 %; Neutrophils # 4.9 K/mcL (1.6-8.9); Platelet Count 168 K/mcL (140-400); Red Blood Count 3.79 M/mcL (3.82-4.97); Red Cell Distribution Width 14.4 % (11.5-14.5); Segmented Neutrophils % 66.5 %
[2018-01-18 03:44] LABS: VBG HCO3 56 mEq/L (21-27); VBG PCO2 92 mmHg (41-51); VBG PH 7.39 pH Units (7.32-7.42); VBG PO2 180 mmHg (25-50)
[2018-01-18] MEDS: *HR* Heparin 5,000 UNIT/ML VIAL SQ SCH ×2 (03:45→17:44)
[2018-01-18 04:02] LABS: BUN/Creatinine Ratio 67 (6-26); Blood Urea Nitrogen 18 mg/dL (6-20); Calcium 8.8 mg/dL (8.6-10.3); Carbon Dioxide > 45 mEq/L (23-29); Chloride 88 mEq/L (98-107); Glucose 111 mg/dL (70-105); Osmolality,Calculated 295 (280-300); Potassium 4.4 mEq/L (3.5-5.1); Sodium 141 mEq/L (136-145); eGFR For African Americans > 60 (> 60); eGFR For Non-African Americans > 60 (> 60)
[2018-01-18] MEDS: Budesonide/Formoterol 160/4.5 MDI IH SCH ×2 (07:19→19:55)
[2018-01-18] MEDS: Furosemide 40 MG TABLET PO SCH (08:59)
[2018-01-18] MEDS: predniSONE 20 MG TABLET PO SCH (09:00)
[2018-01-18] MEDS: Sennosides/Docusate Sodium TABLET PO SCH ×2 (09:00→21:28)
[2018-01-18] MEDS ORDERED: Isovue-370 500 ML INFUS..BTL IV ONE (11:07)
--- NOTE | 2018-01-18 16:01 | Internal Med Progress Note ---
Date of Encounter: 01/18/18 Time of Encounter: 10:30 - Assessment and plan (1) Abdominal pain Current Visit: Yes Status: Acute Assessment and plan: Right upper and lower abdominal pain associated with abdominal distention. She is noted to have bowel movements, on when necessary senna plus and MiraLAX. Abdominal x-ray showed nonspecific bowel gas pattern, no evidence of free air. Patient continues to have abdominal pain today, no discomfort. Pain control and supportive care. Will get CT abdomen/pelvis for further evaluation and to r /o acute causes; Qualifiers: Abdominal location: upper abdomen, unspecified Qualified Code(s): R10.10 - Upper abdominal pain, unspecified (2) COPD (chronic obstructive pulmonary disease) Current Visit: Yes Status: Acute Assessment and plan: Advanced COPD in chronic active smoker. Pulmonology recommendations appreciated , recommend prolonged oral steroid taper. Continue diuresis as tolerated and inhaled corticosteroids. Completed a 7-day course of Azithromycin; Continue supplemental oxygen; overnight BiPAP qualification study completed and qualified. Patient completed power of title attorney paperwork. Palliative care has been consulted, patient wishes to remain full code at this time. Not interested in Hospice at this time; Disposition: to transfer to [facility] rehab when stable; Qualifiers: COPD type: COPD with acute exacerbation Qualified Code(s): J44.1 - Chronic obstructive pulmonary disease with (acute) exacerbation (3) DVT prophylaxis Current Visit: Yes Status: Acute (4) Acute on chronic respiratory failure with hypoxia and hypercapnia Current Visit: Yes Status: Acute (5) CAP (community acquired pneumonia) Current Visit: Yes Status: Acute Assessment and plan: completed a 7-day course of Azithromycin, initially received Rocephin and Zithromax; supplemental O2 and supportive care; Qualifiers: Laterality: left Lung location: lower lobe of lung Qualified Code(s): J18.1 - Lobar pneumonia, unspecified organism (6) Cor pulmonale Current Visit: Yes Status: Chronic Assessment and plan: Echo showed preserved EF, mild diastolic dysfunction, mild LV dilation. Continue PO Lasix and Metoprolol as tolerated. Continue telemetry monitoring. Significant metabolic acidosis noted, due to CO2 retention and use of Lasix, but pH is 7.39; - Time Spent With Patient Total time spent is greater than 50% in coordination of care (as documented) at patient's floor/unit and/or counseling patient: - Subjective Interval history: Continues to have abdominal pain, mostly in right upper and lower abdomen; no chest pain, palpitations, dyspnea; has bowel movements; - Constitutional Vitals: Temp Pulse Resp BP Pulse Ox 98.8 F 98 20 107/63 97 01/18/18 15:18 01/18/18 15:18 01/18/18 15:18 01/18/18 15:18 01/18/18 15:18 General appearance: Present: A&O X 3, answers questions appropriately - Respiratory Respiratory exam: Present: decreased breath sounds (B/L decreased air entry), CTAB. Absent: accessory muscle use, rales, rhonchi, wheezes - Cardiovascular Cardiovascular exam: Present: RRR, +S1, +S2. Absent: diastolic murmur, gallop, rubs, systolic murmur - GI/Abdominal GI/Abdominal exam: Present: distended (with tympanic note), normal bowel sounds , soft, tenderness (in RUQ and RLQ), no peritoneal signs - Extremities Exam Extremities exam: Present: full ROM, pedal edema (trace B/L), warm, radial pulses palpable and symmetrical. Absent: calf tenderness, cyanotic Internal Medicine: Result - Labs CBC & Chem 7: 01/18/18 03:23 01/18/18 03:23 Labs: Short CBC 01/18/18 Range/Units 03:23 WBC 7.4 (4.3-11.1) K/mcL Hgb 11.9 (11.5-15.4) g/dL Hct 37.9 (35.3-44.9) % Plt Count 168 (140-400) K/mcL Neutrophils # 4.9 (1.6-8.9) K/mcL BMP 01/18/18 03:23 Sodium 141 Potassium 4.4 Chloride 88 L Carbon Dioxide > 45 H* BUN 18 Creatinine 0.27 L Glucose 111 H Calcium 8.8 Cardiac Enzymes 01/17/18 Range/Units 15:53 Troponin I 0.03 (< 0.04) ng/mL - ABG Interpretation ABG results: ABG ABG pH 7.33 pH Units (7.32-7.45) 01/13/18 04:50 ABG pCO2 121 mmHg (35-45) H* 01/13/18 04:50 ABG pO2 81 mmHg (85-104) L 01/13/18 04:50 ABG O2 Saturation 93 % (95-98) L 01/13/18 04:50 PT/INR, D-dimer PT 11.3 Seconds (9.4-12.1) 01/10/18 19:17 - VTE Documentation of Mechanical Device: Graduated compression elastic hosiery Consult Discharge Plan - Plan Referrals: Liat Escobedo MD [Partnered Physician] - 03/01/18 9:30 am Zhen Almanzar MD [Primary Care Provider] - 01/23/18 11:30 am
[2018-01-18] MEDS ORDERED: Ondansetron 4 MG/2 ML VIAL IVP PRN (23:44)
[2018-01-19] MEDS: *HR* Heparin 5,000 UNIT/ML VIAL SQ SCH (03:47)
[2018-01-19] MEDS: Ipratropium/Albuterol Neb 3 ML IH SCH ×3 (04:21→11:08)
[2018-01-19] MEDS: Budesonide/Formoterol 160/4.5 MDI IH SCH (07:38)
[2018-01-19 07:55] VITALS: BP 111/68
[2018-01-19] MEDS: Sennosides/Docusate Sodium TABLET PO SCH (08:50)
[2018-01-19] MEDS: Furosemide 40 MG TABLET PO SCH (08:50)
[2018-01-19] MEDS: predniSONE 20 MG TABLET PO SCH (08:50)
--- NOTE | 2018-01-19 10:53 | Discharge Summary ---
- NOTES TO OUTPATIENT PROVIDER Notes to Outpatient Provider: Acute COPD with advanced disease; on Lasix now, and prolonged steroid taper Orders not resulted at time of discharge: Pending orders 01/17/18 15:50 EKG [ECG 12 lead ECG] [ECG] Stat Date of Encounter: 01/19/18 Time of Encounter: 10:52 - Discharge Diagnosis (1) COPD (chronic obstructive pulmonary disease) Priority: Primary Status: Acute Qualifiers: COPD type: COPD with acute exacerbation Qualified Code(s): J44.1 - Chronic obstructive pulmonary disease with (acute) exacerbation (2) Acute on chronic respiratory failure with hypoxia and hypercapnia Priority: Primary Status: Acute (3) CAP (community acquired pneumonia) Priority: Primary Status: Acute Qualifiers: Laterality: left Lung location: lower lobe of lung Qualified Code(s): J18.1 - Lobar pneumonia, unspecified organism (4) Cor pulmonale Priority: Secondary Status: Chronic Hospital course: Ms. Mclaughlin is a 52 year old female with advanced COPD, who was admitted with worsening shortness of breath and is better in distress. Patient was noted to be in acute exacerbation of COPD, started on empiric IV antibiotics, IV steroids , bronchodilators, supplemental oxygen along with noninvasive positive pressure ventilation. Pulmonology was consulted, agreed with this management. CT chest was done to rule out underlying malignancy, which showed tiny bilateral pleural effusions, tiny left pulmonary nodule, severe emphysema. Echocardiogram was done which showed preserved EF, mild diastolic dysfunction, mild RV dilation. Patient was also noted to have volume overload with pedal edema. She was diuresed with IV Lasix. Clinical condition gradually improved. She is doing better, requiring 4 L/m supplemental oxygen and BiPAP support at night and during naps. CPAP is not indicated. Overnight BiPAP qualification study was completed, patient did not qualify. She also complained of upper abdominal pain, abdominal x-ray showed nonspecific bowel gas pattern. CT abdomen/pelvis showed constipation and changes suggestive of enteritis. She completed a course of antibiotics for suspected pneumonia, she is now being discharged on oral Flagyl. Abdominal pain improved with supportive care and laxatives. Patient is now medically stable for transfer to inpatient rehabilitation. Patient and significant other in agreement. Discharge discussed with: patient, family, nurse - Time Spent with Patient Total time spent providing and/or coordinating discharge services: Greater than 30 minutes (50 min) - Discharge Medications Prescriptions: metroNIDAZOLE [Flagyl] 500 mg PO TID #15 tablet Home Medications: Albuterol Sulfate [Ventolin Hfa] 2 puff IH Q6H PRN 01/10/18 [History] Budesonide/Formoterol 160/4.5 [Symbicort 160/4.5] 2 puff IH BIDR 01/11/18 [ History] Clopidogrel [Plavix] 75 mg PO DAILY 01/11/18 [History] Umeclidinium [place] [Incruse Ellipta] 1 puff IH DAILY 01/11/18 [History] Acetaminophen [Tylenol] 650 mg PO Q6HR PRN tablet 01/19/18 [Rx] Furosemide [Lasix] 40 mg PO BID tablet 01/19/18 [Rx] Metoprolol [Lopressor] 12.5 mg PO BID tablet 01/19/18 [Rx] Polyethylene Glycol 3350 [MiraLAX] 17 gm PO DAILY PRN powd.pack 01/19/18 [Rx] Sennosides/Docusate Sodium [Senna Plus] 1 each PO BID tablet 01/19/18 [Rx] metroNIDAZOLE [Flagyl] 500 mg PO TID #15 tablet 01/19/18 [Rx] predniSONE [PredniSONE] 40 mg PO DAILY #5 tablet 01/19/18 [Rx] Allergies/Adverse Reactions: 3 Allergy/AdvReac Type Severity Reaction Status Date / Time aspirin AdvReac Vomiting Verified 09/06/15 19:28 Date of admission: 01/12/18 19:27 Primary care physician: Zhen Almanzar MD Consults: 01/10/18 16:43 Consult to Nutrition [CONS] Routine Comment: Consulting Provider: NUTRITION Reason for Dietary Consult: MST Score Consult to Core Machine Operator [CONS] Routine Reason for SW Consult: d/c planning 01/11/18 01:11 Consult to Nurse Navigator [CONS] Routine Comment: 01/11/18 10:46 Consult to Cardiology [CONS] Routine Comment: Consulting Provider: Cardiology [place] Reason for Consult: 25 beat run of Vtach Call Completed: No 01/11/18 15:23 Consult to Respiratory Therapy [CONS] Routine Reason for Consult: Acute hypoxic/hypercapnic respiratory failure Call Completed: Yes 01/11/18 15:48 Consult to Pulmonology [CONS] Routine Consulting Provider: [facility] Reason for Consult: Acute hypoxic/hypercapnic respiratory failure Call Completed: Yes 01/12/18 08:03 Consult to Palliative Care [CONS] Routine Comment: Consulting Provider: Palliative Care [facility] Reason for Consult: Discussed goals of care with end-stage COPD Call Completed: No 01/17/18 02:43 PT [Consult to Physical Therapy] [CONS] Routine Comment: Evaluate, develop and implement POC Reason for Consult: Increased weakness from baseline Does patient have active BEDREST order?: No Is patient medically & hemodynamically stable?: Yes Patient assessed for mobility or mobilized this visit?: No Discharging clinician: Alla Jones Anticipated date of discharge: 01/19/18 - Constitutional Vitals: Temp Pulse Resp BP Pulse Ox 98.3 F 101 16 111/68 92 01/19/18 06:40 01/19/18 06:40 01/19/18 07:41 01/19/18 06:40 01/19/18 07:41 General appearance: Present: A&O X 3, answers questions appropriately - Respiratory Respiratory exam: Present: decreased breath sounds (B/L decreased air entry), CTAB, rhonchi (occasional). Absent: accessory muscle use, rales, wheezes - Patient Status Disposition: Transfer Inpatient Rehab Fac Condition: Fair Functional capacity at discharge: uses cane/walker Overall status at discharge: patient is progressing back to baseline - Discharge Instructions Follow Up With: Liat Escobedo MD [Partnered Physician] - 03/01/18 9:30 am Zhen Almanzar MD [Primary Care Provider] - 01/23/18 11:30 am - Diet and Activity Activity: as per physical therapy, wear oxygen at all times, other (wear BiPAP during naps and night time) Diet: low fat, low cholesterol, low salt diet - VTE Documentation of Mechanical Device: Graduated compression elastic hosiery
--- NOTE | 2018-01-19 11:02 | Physician Discharge Referral ---
ExtendedCare Referral Info [facility] Provider in Charge: Alla Jones Provider in Charge after Transfer: PCP Institutional Level of Care: Intermediate - Diagnosis (1) COPD (chronic obstructive pulmonary disease) Priority: Primary Status: Acute (2) Acute on chronic respiratory failure with hypoxia and hypercapnia Priority: Primary Status: Acute (3) CAP (community acquired pneumonia) Priority: Primary Status: Acute (4) Cor pulmonale Priority: Secondary Status: Chronic Expected Duration of Placement: 3 weeks Prognosis: Fair Aware of Diagnosis: Patient, Family Aware of Prognosis: Patient, Family - Transfer Medications Prescriptions: metroNIDAZOLE [Flagyl] 500 mg PO TID #15 tablet Home Medications: Albuterol Sulfate [Ventolin Hfa] 2 puff IH Q6H PRN 01/10/18 [History] Budesonide/Formoterol 160/4.5 [Symbicort 160/4.5] 2 puff IH BIDR 01/11/18 [ History] Clopidogrel [Plavix] 75 mg PO DAILY 01/11/18 [History] Umeclidinium [place] [Incruse Ellipta] 1 puff IH DAILY 01/11/18 [History] Acetaminophen [Tylenol] 650 mg PO Q6HR PRN tablet 01/19/18 [Rx] Furosemide [Lasix] 40 mg PO BID tablet 01/19/18 [Rx] Metoprolol [Lopressor] 12.5 mg PO BID tablet 01/19/18 [Rx] Polyethylene Glycol 3350 [MiraLAX] 17 gm PO DAILY PRN powd.pack 01/19/18 [Rx] Sennosides/Docusate Sodium [Senna Plus] 1 each PO BID tablet 01/19/18 [Rx] metroNIDAZOLE [Flagyl] 500 mg PO TID #15 tablet 01/19/18 [Rx] predniSONE [PredniSONE] 40 mg PO DAILY #5 tablet 01/19/18 [Rx] Allergies/Adverse Reactions: 3 Allergy/AdvReac Type Severity Reaction Status Date / Time aspirin AdvReac Vomiting Verified 09/06/15 19:28 - Respiratory Orders Oxygen / L per min (3-4L/min via [place], continuous), Other (BiPAP during naps and night time at 45%/10/5/RR 8) Smoking Cessation: Smoking cessation has been advised. For more information, call the [place] Tobacco Quit Line at 3-424-NJYF-NOW. - Advance Directives Power of Quality Assurance Assessor: Yes Code Status: Full Code - Mobility Orders Ambulate - Rehabiliation Orders Rehab Potential: Fair Rehab Orders: ROM Exercises, Evaluation for Physical Therapy, Evaluation for Occupational Therapy - Diet Orders Cardiac CERTIFICATION: I certify that the transfer of the above named patient to an Extended Care Facility is necessary for the continuing treatment of the diagnosis listed. The above information is true and accurate reflection of patient's current condition. Confidential - Redisclosure prohibited without a patient's written consent.
[2018-01-19] MEDS ORDERED: Ondansetron ODT 4 MG TAB.RAPDIS SL ONE (12:31)
[2018-01-21 16:26] LABS: ABG PH Corrected Result pH Units (7.32-7.45)
[2018-01-21 16:27] LABS: ABG Base Excess Corrected Result mEq/L (-2 to 3); ABG HCO3 Corrected Result mEq/L (21-27); ABG PCO2 Corrected Result mmHg (35-45); ABG PO2 Corrected Result mmHg (85-104); ABG TCO2 Corrected Result mEq/L (20-26)
[2018-01-21 16:28] LABS: ABG Oxygen Saturation Corrected Result % (95-98); Blood Gas FiO2 Corrected Result (1-15=lpm or21-100=%); Blood Gas Modality Corrected Result
[2018-01-21 16:29] LABS: Blood Gas Respiration Rate Corrected Result; Blood Gas VT Corrected Result cc
== END 2018-01-19 13:06 | DRG 193 ==
LOC: INTOOBSV 16:05 → 2NNU 16:05 → SUATTDRO 16:05
PROVIDERS: ADMIT Student in an Organized Health Care Education/Training Program; ATTEND Internal Medicine